=== PATIENT | male | born 1950 | race Caucasian/White ===

== ENCOUNTER 2021-01-13 11:53 | Outpatient (REF) | payer MEDICARE, SELFPAY ==
--- NOTE | ~2021-01-13 | XR_ITS ---
EXAMINATION: XR BOTH KNEES AP STANDING XR RIGHT KNEE, 2 VIEWS CLINICAL INFORMATION: Pain. COMPARISON: None. TECHNIQUE: Standing AP view of both knees and lateral and sunrise views of the right knee. FINDINGS: Right knee: Mild medial compartment joint space narrowing. Tricompartment marginal osteophytes. No osseous erosion. No fracture or dislocation. Trace joint effusion. Left knee: Mild medial compartment joint space narrowing with tiny marginal osteophytes. No osseous erosion. No abnormal soft tissue calcification. No fracture. XR/XR knee standing BI IMPRESSION: Right knee: Mild tricompartmental osteoarthritis. Trace joint effusion. Left knee: Mild medial compartment osteoarthritis.
--- NOTE | ~2021-01-13 | XR_ITS ---
EXAMINATION: XR BOTH KNEES AP STANDING XR RIGHT KNEE, 2 VIEWS CLINICAL INFORMATION: Pain. COMPARISON: None. TECHNIQUE: Standing AP view of both knees and lateral and sunrise views of the right knee. FINDINGS: Right knee: Mild medial compartment joint space narrowing. Tricompartment marginal osteophytes. No osseous erosion. No fracture or dislocation. Trace joint effusion. Left knee: Mild medial compartment joint space narrowing with tiny marginal osteophytes. No osseous erosion. No abnormal soft tissue calcification. No fracture. XR/XR knee RT 2V IMPRESSION: Right knee: Mild tricompartmental osteoarthritis. Trace joint effusion. Left knee: Mild medial compartment osteoarthritis.
== END 2021-01-13 11:54 | disposition home or self-care (01) ==
LOC: HO.HOSX 11:53
PROVIDERS: Visit Provider Orthopaedic Surgery
DX: M17.11 Unilateral primary osteoarthritis, right knee (principal); M76.892 Other specified enthesopathies of left lower limb, excluding foot
CPT/HCPCS: 73560; 73565; 99202

== ENCOUNTER 2021-01-22 12:57 | Outpatient (REF) | payer MEDICARE, BC, SELFPAY ==
--- NOTE | ~2021-01-22 | XR_ITS ---
EXAMINATION: BILATERAL WRIST X-RAY CLINICAL INFORMATION: Pain COMPARISON: None TECHNIQUE: 3 views of each wrist FINDINGS: Right: There is question of all old trauma to the distal ulna and mild madelung deformity. There is arthritis at the radiocarpal and distal radioulnar joints. There is arthritis at the first RESIDENTIAL joint and trapezoid trapezium scaphoid joints. There is soft tissue arterial calcification. There is soft tissue swelling about the wrist. Left: Bone alignment is normal. No fracture or dislocation is seen. There is severe arthritis at the first RESIDENTIAL joint. Joint spaces are otherwise normal. There is soft tissue arterial calcification. There is soft tissue swelling about the wrist. XR/XR wrist LT min 3V IMPRESSION: Right: Question old trauma to the distal ulna and madelung deformity. Arthritis at the radiocarpal and distal radial ulnar joint, first RESIDENTIAL and trapezoid trapezium scaphoid joints. Left: Severe arthritis at the first RESIDENTIAL joint.
--- NOTE | ~2021-01-22 | XR_ITS ---
EXAMINATION: BILATERAL WRIST X-RAY CLINICAL INFORMATION: Pain COMPARISON: None TECHNIQUE: 3 views of each wrist FINDINGS: Right: There is question of all old trauma to the distal ulna and mild madelung deformity. There is arthritis at the radiocarpal and distal radioulnar joints. There is arthritis at the first USP joint and trapezoid trapezium scaphoid joints. There is soft tissue arterial calcification. There is soft tissue swelling about the wrist. Left: Bone alignment is normal. No fracture or dislocation is seen. There is severe arthritis at the first USP joint. Joint spaces are otherwise normal. There is soft tissue arterial calcification. There is soft tissue swelling about the wrist. XR/XR wrist RT min 3V IMPRESSION: Right: Question old trauma to the distal ulna and madelung deformity. Arthritis at the radiocarpal and distal radial ulnar joint, first USP and trapezoid trapezium scaphoid joints. Left: Severe arthritis at the first USP joint.
== END 2021-01-22 12:58 | disposition home or self-care (01) ==
LOC: HO.HOSX 12:57
PROVIDERS: PCP Family Medicine; Visit Provider Orthopaedic Surgery
DX: R20.0 Anesthesia of skin (principal); R20.2 Paresthesia of skin; M72.0 Palmar fascial fibromatosis [Dupuytren]
CPT/HCPCS: 73110; 99202

== ENCOUNTER → 2021-02-20 09:07 | Outpatient (BNVA) | payer MEDICARE, BC, SELFPAY | PROVIDERS: PCP Hospitalist; Visit Provider Orthopaedic Surgery | DX: M17.11 Unilateral primary osteoarthritis, right knee (principal) | CPT/HCPCS: 20610; 99212; J1100 ==

== ENCOUNTER → 2021-06-26 10:12 | Outpatient (BNVA) | payer MEDICARE, BC, SELFPAY | PROVIDERS: PCP Hospitalist; Visit Provider Orthopaedic Surgery | DX: S83.242D Other tear of medial meniscus, current injury, left knee, subsequent encounter (principal) | CPT/HCPCS: 99212 ==

== ENCOUNTER → 2021-07-24 12:58 | Outpatient (BNVA) | payer MEDICARE, BC, SELFPAY | PROVIDERS: Visit Provider Physician Assistant | DX: M17.11 Unilateral primary osteoarthritis, right knee (principal) | CPT/HCPCS: 99212 ==

== ENCOUNTER 2021-07-30 11:46 | Day surgery (SDC) | payer MEDICARE, BC, SELFPAY ==
[2021-07-24 08:55] VITALS: BMI 26.4
--- NOTE | 2021-07-24 13:22 | P.CONAN_ITS ---
Documented by User: Janelle Reeder NP 07/29/21 08:36 HPI - Anesthesia Eval Consult details Narrative: 71yo M for Right Knee Arthroscopy Deep brain stim in situ (battery pack in chest) for cervical dystonia. Implanted 2019 at [facility]. No neuro f/u since, but working well per patient, no issues. Case reviewed with Dr Fields. PR[facility]ETO for DOS eval. [facility] Active Problems Active Problems: All Active Problems (Updated 07/24/21 @ 09:12 by Jo Ann Borges RN) Arthritis of right knee (Acute) Tendinitis of left hip flexor (Acute) Numbness and tingling in both hands (Acute) Dupuytren's contracture of left hand (Acute) Dupuytren's contracture of right hand (Acute) Tear of medial meniscus of right knee (Acute) Tear of medial meniscus of left knee (Acute) Past Medical History Medical History (Updated 07/24/21 @ 09:12 by Jo Ann Borges RN) Cervical dystonia Depression Elevated cholesterol Surgical History Surgical History (Updated 07/24/21 @ 09:23 by Jo Ann Borges RN) H/O brain surgery Hx of arthroscopic knee surgery Hx of colonoscopy Social History Social History Patient Tobacco Use Status: Former Tobacco user Quit Date: 45 yrs ago Use of substances other than those prescribed or required for medical reasons: No Are you DNR?: No Advance Directives: No Advance Directives Information Provided: No Advance Directives on File: No Current occupational status: retired Current occupation: rt handed Meds Allergies Allergy/AdvReac Type Severity Reaction Status Date / Time Penicillins Allergy Unknown Unknown Verified 02/20/21 09:11 Home Medications Medication Instructions Recorded Confirmed Last Taken Type atorvastatin 10 mg PO DAILY 01/13/21 07/24/21 Unknown History paroxetine HCl 20 mg PO DAILY 01/13/21 07/24/21 Unknown History Vitamin C PO DAILY 07/24/21 Unknown History turmeric PO DAILY 07/24/21 Unknown History vitamin E PO DAILY 07/24/21 Unknown History Exam Exam Date and Time: July 24, 2021 1322 Height,Weight and Vital Signs: Height 6 ft 1 in Weight 90.718 kg Assessment and Plan Assessment Anesthesia Assessment: Chart Reviewed Documented by User: Anthony Mo MD 07/30/21 18:08 PMF Past Medical History Medical History (Updated 07/24/21 @ 09:12 by Jo Ann Borges RN) Cervical dystonia Depression Elevated cholesterol Family History Family history of problems with anesthesia: No Surgical History Surgical History (Updated 07/24/21 @ 09:23 by Jo Ann Borges RN) H/O brain surgery Hx of arthroscopic knee surgery Hx of colonoscopy History of Problems with Anesthesia: No Social History Social History Patient Tobacco Use Status: Former Tobacco user Quit Date: 45 yrs ago Use of substances other than those prescribed or required for medical reasons: No Are you DNR?: No Advance Directives: No Advance Directives Information Provided: No Advance Directives on File: No Current occupational status: retired Current occupation: rt handed Meds Allergies Allergy/AdvReac Type Severity Reaction Status Date / Time Penicillins Allergy Unknown Unknown Verified 02/20/21 09:11 Home Medications Medication Instructions Recorded Confirmed Last Taken Type atorvastatin 10 mg PO DAILY 01/13/21 07/24/21 Unknown History paroxetine HCl 20 mg PO DAILY 01/13/21 07/24/21 Unknown History Vitamin C PO DAILY 07/24/21 Unknown History turmeric PO DAILY 07/24/21 Unknown History vitamin E PO DAILY 07/24/21 Unknown History Exam Airway Mallampati Class: III TM Dist: >3cm Neck ROM: Full Loose/Missing/Broken Teeth: Yes (Chipped ) Heart: S1, S2 Lungs: b/l breath sounds Assessment and Plan Assessment Anesthesia Assessment: Anesthesia Plan Discussed Final Anesthetic Review Family History of Problems with Anesthesia: No History of Problems with Anesthesia: No NPO: Yes ASA Class: III Final Preanesthetic Review: Meds/Allgs Chart Reviewed, Consent Obtained/Reviewed and Anes Risks/Benef Reviewed Patient Risk: Intermediate Procedure Risk: Intermediate Anesthetic Plan Anesthetic Plan: GA Disposition: Standard PACU
[2021-07-30 13:02] VITALS: BP 160/79; PULSE 48; RESP 16; TEMP 36.1; O2SAT 98
[2021-07-30] MEDS: Lactated Ringers 1,000 ML 100 ML IVCONT (13:16)
--- NOTE | 2021-07-30 13:18 | MHC.SHP ---
Pre-Procedural Eval Section A Date of Service: 07/30/21 The patient is an INPATIENT: No Changes since office visit: Yes Patient answered all questions; No Cold of Flu in the past 2 weeks, No New Medical Problems and No Changes in Medication The History & Physical has been completed within 30 days and I have reviewed it.: Yes Section B Chief Complaint: Unilateral primary osteoarthritis, right knee Allergies: Allergies Allergy/AdvReac Type Severity Reaction Status Date / Time Penicillins Allergy Unknown Unknown Verified 02/20/21 09:11 Plan I have reviewed the history and physical and performed a pertinent physical examination on my patient. No changes have occurred unless specified.
[2021-07-30 15:20] VITALS: BP 127/83; PULSE 52; RESP 14; TEMP 36.9; O2SAT 98
[2021-07-30 15:25] VITALS: BP 132/68; PULSE 55; RESP 14; O2SAT 100
[2021-07-30 15:30] VITALS: BP 147/99; PULSE 51; RESP 16; O2SAT 100
[2021-07-30 15:35] VITALS: BP 157/94; PULSE 63; RESP 16; TEMP 37; O2SAT 100
--- NOTE | 2021-08-08 15:51 | PM.OP ---
Brief Operative Note Date of Service: 07/30/21 Pre-op diagnosis: right knee medial meniscus tear Post-op diagnosis: same Procedure: Right knee with partial medial meniscectomy Surgeon: Fer Gonzalez MD Anesthesia: GETA Was an Fire Control System Installer used for this Procedure?: No Estimated blood loss (mL): 10 Tourniquet time (min): 25 IV fluids (mL): 500 Pathology: none sent Condition: stable Disposition: PACU
--- NOTE | 2021-08-08 15:52 | W.PM.OPN ---
Operative Note Operative Note Date of Service: 07/30/21 Narrative: Procedure in detail: Patient was brought to the operating room placed supine on the arthroscopic table and prepped and draped in standard sterile fashion. A time-out was called to identify proper site proper procedure proper surgeon and IV antibiotics per weight were administered. I began by exsanguinating the limb and insufflating tourniquet to 300 mm Hg. Then made a standard anterolateral stab incision. The knee was insufflated with water and 30 degree arthroscope was placed. There was grade 1 fibrillations of the patella but overall suprapatellar pouch was plane and the gutters were clean. I descended into the medial compartment where I made my medial portal under direct visualization. There was a complex tear of the body and posterior horn of the medial meniscus. Root was intact and there was grade 1 changes with some scattered grade 1 changes throughout the medial compartment. I used a combination of biter shaver and cautery to remove unstable portions of the meniscus. Approximately 20% meniscal volume was removed. Once I was satisfied with this the ACL was examined and found to be intact and the lateral compartment also was without the need for intervention. I then removed all instrumentation and closed the portals with skin glue. 25 mL of 2% Marcaine with epinephrine was injected into the joint and the surrounding soft tissues. Patient was then placed in sterile dressing extubated brought recovery room stable condition. There were no known complications.
== END 2021-07-30 16:15 | disposition home or self-care (01) ==
LOC: HO.SSS 11:47
PROVIDERS: PCP Hospitalist; Visit Provider Orthopaedic Surgery
PROC: (CPT 29870; principal; 2021-07-30 14:40)
DX: S83.241A Other tear of medial meniscus, current injury, right knee, initial encounter (principal); S83.231A Complex tear of medial meniscus, current injury, right knee, initial encounter; M17.11 Unilateral primary osteoarthritis, right knee; X58.XXXA Exposure to other specified factors, initial encounter; Y93.9 Activity, unspecified; Y92.9 Unspecified place or not applicable; Y99.8 Other external cause status; G24.3 Spasmodic torticollis; F32.9 Major depressive disorder, single episode, unspecified; E78.00 Pure hypercholesterolemia, unspecified; Z88.0 Allergy status to penicillin; Z87.891 Personal history of nicotine dependence; Z98.890 Other specified postprocedural states
CPT/HCPCS: 29881; J0171; J1100; J2405; J3010

== ENCOUNTER → 2021-08-04 08:48 | Outpatient (BNVA) | payer MEDICARE, BC, SELFPAY | PROVIDERS: Visit Provider Physician Assistant | DX: Z47.89 Encounter for other orthopedic aftercare (principal); Z98.890 Other specified postprocedural states | CPT/HCPCS: 99212 ==

== ENCOUNTER → 2021-11-27 11:16 | Outpatient (BNVA) | payer MEDICARE, BC, SELFPAY | PROVIDERS: Visit Provider Orthopaedic Surgery | DX: M17.11 Unilateral primary osteoarthritis, right knee (principal); Z98.890 Other specified postprocedural states | CPT/HCPCS: 99212 ==

== ENCOUNTER 2022-02-12 12:13 | Outpatient (REF) | payer MEDICARE, BC, SELFPAY ==
--- NOTE | ~2022-02-12 | XR_ITS ---
EXAMINATION: XR PELVIS CLINICAL INFORMATION: Hip pain COMPARISON: None TECHNIQUE: AP view of the pelvis. FINDINGS: There is normal symmetry of bilateral hip joints and SI joints. No visible fracture or dislocation. No bony erosive changes. The soft tissues are normal. XR/XR pelvis 1-2V IMPRESSION: Unremarkable AP pelvis exam.
== END 2022-02-12 12:14 | disposition home or self-care (01) ==
LOC: HO.HOSX 12:13
PROVIDERS: Visit Provider Orthopaedic Surgery
DX: M70.61 Trochanteric bursitis, right hip (principal); M17.0 Bilateral primary osteoarthritis of knee
CPT/HCPCS: 20610; 72170; 99212; J1100; J7318

== ENCOUNTER 2023-02-22 14:32 | Outpatient (AMB) | payer MEDICARE, BC, SELFPAY ==
--- NOTE | 2023-02-22 14:33 | A.OFFVIS_ITS ---
Intake Intake Visit Reasons: RT knee pain, last injection 02/12/22 Intake Note: Nick is a 73 year old male who presents today for a follow up of his right knee, last injection done . He reports that this injection was helpful but is unsure if he wants to proceed with new injection. He has some instability. Allergies Penicillins Allergy (Unknown, Verified 11/27/21 11:29) Unknown HPI RT knee pain, last injection 02/12/22 HPI Details Nick is a 73 year old man who returns with complaints of right knee pain & instability. He was last seen on 02/12/22 and received a Durolane injection to his right knee, and a steroid injection to his left knee. He complains of pain with daily activity, along with some instability. He says the Durolane injection was helpful for some time, but he is unsure if he wants to continue with injections or discuss other treatment options. PFSH Medical History Cervical dystonia Depression Elevated cholesterol Surgical History Hx of colonoscopy Hx of arthroscopic knee surgery H/O brain surgery Social History Patient Tobacco Use Status: Former Tobacco user Quit Date: 45 yrs ago Current occupational status: retired Current occupation: rt handed Review of Systems Const All systems reviewed & are unremarkable except as noted in HPI and below Physical Exam Const General: no acute distress, alert and awake Orientation/consciousness: patient oriented x3 HEENT Head: Yes normocephalic and Yes atraumatic Eyes EOM: EOMs intact bilaterally Resp Effort & Inspection: normal respiratory effort and able to speak in complete sentences Cardio Jugular venous distension: no JVD Skin General skin exam: turgor normal Rashes: no rashes Neuro General: patient oriented x3 Extrem Other: no effusion TTP medial compartment and medial retropatellar full rom no effusion Psych Appearance: grossly normal Affect: normal affect Attitude: cooperative Results Reviewed Results Reviewed: I personally reviewed relevant radiographs Right knee: Mild tricompartmental osteoarthritis. Trace joint effusion. ? Left knee: Mild medial compartment osteoarthritis. Assessment & Plan Assessment & Plan (1) Arthritis of right knee: Code(s): M17.11 - Unilateral primary osteoarthritis, right knee Plan: Moderate right knee OA. Has benefitted from viscosupplementation. I recommend additional IZQUIERDO as last injection > 1 yr ago. Will reach out to insurer. Plan Scribed for Fer Gonzalez MD by Freddy Jolly, medical assistant secretary, on 02/22/23 at 2:50 PM, EST. Coding Level of Care Code Est Pt Level 3 (98474) Diagnoses Arthritis of right knee M17.11
== END 2023-02-22 15:14 | disposition home or self-care (01) ==
PROVIDERS: Visit Provider Orthopaedic Surgery
DX: M17.11 Unilateral primary osteoarthritis, right knee (principal)
CPT/HCPCS: 99213

== ENCOUNTER → 2023-02-22 14:32 | Outpatient (BNVA) | payer MEDICARE, BC, SELFPAY | PROVIDERS: Visit Provider Orthopaedic Surgery | DX: M17.11 Unilateral primary osteoarthritis, right knee (principal) | CPT/HCPCS: 99212 ==

== ENCOUNTER 2023-03-05 11:36 | Outpatient (AMB) | payer MEDICARE, BC, SELFPAY ==
--- NOTE | 2023-03-05 11:42 | MHC.OFFVIS ---
Intake Intake Visit Reasons: Right Knee Durolane Allergies Penicillins Allergy (Unknown, Verified 11/27/21 11:29) Unknown HPI Right Knee Durolane HPI Details Here for right knee Durolane PFSH Medical History Cervical dystonia Depression Elevated cholesterol Surgical History Hx of colonoscopy Hx of arthroscopic knee surgery H/O brain surgery Social History Patient Tobacco Use Status: Former Tobacco user Quit Date: 45 yrs ago Current occupational status: retired Current occupation: rt handed Physical Exam Extrem Other: skin c/d/i no effusion Office Procedures Joint Injection/Drain Joint Injection/Drain Details: Injected Durolane. Site was prepped using aseptic technique. Patient tolerated the procedure well. Coding - Large joint Procedure code (CPT) selection complete Assessment & Plan Assessment & Plan (1) Arthritis of right knee: Code(s): M17.11 - Unilateral primary osteoarthritis, right knee Plan: Right knee Durolane injection. Coding Level of Care Code Est Pt Level 2 (04534) Diagnoses Arthritis of right knee M17.11 CPT Codes Coding - Large joint: 83728 - Large joint ([id number])
== END 2023-03-05 12:22 | disposition home or self-care (01) ==
PROVIDERS: Visit Provider Orthopaedic Surgery
DX: M17.11 Unilateral primary osteoarthritis, right knee (principal)
CPT/HCPCS: 20610

== ENCOUNTER → 2023-03-05 11:36 | Outpatient (BNVA) | payer MEDICARE, BC, SELFPAY | PROVIDERS: Visit Provider Orthopaedic Surgery | DX: M17.11 Unilateral primary osteoarthritis, right knee (principal) | CPT/HCPCS: 20610; J7318 ==

== ENCOUNTER 2023-10-07 08:45 | Outpatient (REF) | payer MEDICARE, BC, SELFPAY | END 2023-10-07 08:46 | disposition home or self-care (01) | LOC: HO.HOSX 08:45 | PROVIDERS: Visit Provider Orthopaedic Surgery | DX: Z13.89 Encounter for screening for other disorder (principal) ==

== ENCOUNTER 2024-10-12 11:01 | Outpatient (AMB) | payer MEDICARE, BC, SELFPAY ==
[2024-10-12 11:03] VITALS: BMI 26.4
--- NOTE | 2024-10-12 11:03 | A.OFFVIS_ITS ---
Vital Signs 10/12/24 11:03 Height 6 ft 1 in Weight 200 lb BMI 26.4 Intake Visit Reasons: OV-Rt knee OA Intake Note: Nick is a 74 year old male who presents today for follow up of his right knee osteoarthritis. He was last seen by Dr. Gonzalez on 03/05/23 where he was given a Durolane injection. He reports the injections gave him good relief however for the past 4-5 months his symptoms have reoccurred. Patient is interested on repeating gel injection. Denies any new injuries. Hx right knee arthroscopy 07/30/[address] Gonzalez. Allergies Penicillins Allergy (Unknown, Verified 10/12/24 11:06) Unknown HPI HPI OV-Rt knee OA: Details: Mr. Yang is a 74-year-old male who presents to the office today for evaluation of chronic right knee pain. He was last seen in the office with Dr. Gonzalez on 03/05/2023 for arthritis of his right knee. Patient has tried cortisone injections in the past with some relief. He did have a round of gel injections in the past that gave him great relief. This was performed at his last visit and gave him relief up until about 3-4 months ago. He is looking to repeat Durolane injections. PFSH Medical History Cervical dystonia Depression Elevated cholesterol Surgical History Hx of colonoscopy Hx of arthroscopic knee surgery H/O brain surgery Social History Patient Tobacco Use Status: Former Tobacco user Current occupational status: retired Current occupation: rt handed Review of Systems Const All systems reviewed & are unremarkable except as noted in HPI and below Physical Exam Vital Signs: BMI result Body Mass Index 26.4 Const General: cooperative, healthy appearing and no acute distress Resp Effort & Inspection: normal respiratory effort and able to speak in complete sentences Extrem Other: Right knee no effusion. Tenderness to palpation medial joint line. No tenderness to lateral joint line. Crepitus felt with range of motion. Full range of motion. NVI. Psych Appearance: grossly normal Mental Status: mental status grossly normal Attitude: cooperative Office Procedures AMB Joint Injection/Aspiration Joint Injection/Aspiration Primary Site: right knee Prep: site was prepped using aseptic technique, ethochloride spray was applied and injection warnings given Injected: 80 mg of, DepoMedrol, with 8 mL of (2% plain lidocaine) and in the joint Approach Used: anterolateral Procedure: The patient tolerated the procedure well, but had some pain with the injection and there was some relief with the local anesthesia Coding 82077 - Large joint Procedure code (CPT) selection complete Assessment & Plan Assessment & Plan (1) Arthritis of right knee: Code(s): M17.11 - Unilateral primary osteoarthritis, right knee Category: Medical Plan Mr. Yang is a 74-year-old male who presents to the office today for evaluation of chronic right knee pain. He was last seen in the office with Dr. Gonzalez on 03/05/2023 for arthritis of his right knee. Patient has tried cortisone injections in the past with some relief. He did have a round of gel injections in the past that gave him great relief. This was performed at his last visit and gave him relief up until about 3-4 months ago. He is looking to repeat Durolane injections. The patient was offered a cortisone injection in the right knee with 80 mg of D epoMedrol. The patient was explained the risks, benefits, and alternatives to receiving this injection. After receiving consent for the injection, the patient had the procedure done while in the office today. The patient tolerated the procedure well with no complications. While in the office today, we discussed petition the insurance company for another round of Durolane injections as the last injections worked very well for him. We will start this process for him in his soon as we obtain authorization we will call him to schedule appointments as appropriate. Follow-up will be pending gel approval, or sooner if needed X-rays of the right knee which were obtained while in the office today and were reviewed by me, Gisselle Head PA-C, revealed osteoarthritis. Orders: Orders XR knee RT 3V Today M25.569 - Pain in unspecified knee Coding Level of Care Code Est Pt Level 3 (36994) Diagnoses Arthritis of right knee M17.11 CPT Codes Coding - 03698 Large joint: 98252 - Large joint ([id number])
--- OUTSIDE RECORDS SUMMARY | 2024-10-12 11:50 | XMS_ITS | Clinical Summary ---
Author Organization [facility] Address [address] [place] [address] Care Team Providers Care Payroll Secretary Name Role Phone Unavailable Primary Care Provider Unavailabl e Social History Tobacco Use Types Packs/Day Years Used Date Smoking Tobacco: Never Assessed Sex and Gender Information Value Date Recorded Sex Assigned at Not on file Gender Identity Not on file Sexual Orientation Not on file Job Start Date Occupation Industry Not on file Not on file Not on file Plan of Treatment Health Maintenance Due Date Last Done Comments Hepatitis C Screening 1950 Depression Screening 1962 Preventative Health Evaluation 01/04/1968 DTap / Tdap / Td (1 - Tdap) 1969 Colon Cancer Screening (Colonoscopy) 1995 Fall Risk Assessment 2015 Pneumococcal Vaccine (1 of 1 - PCV) 2015 Shingrix-Zoster Vaccine (2 of 2) 03/10/2022 01/13/2022 COVID-19 Vaccine ( - season) 2023 12/08/2021, 12/10/2020, 10/04/2020, Additional history exists Influenza Vaccine (#1) 2024 04/15/2021, 2017 RSV Adult > 60+ Yrs or (1 - 1-dose 75+ series) 2025 Hepatitis B Vaccines Aged Out No long er eligible based on patient's age to complete this topic RSV Ped < 20 months Aged Out No longe r eligible based on patient's age to complete this topic
--- OUTSIDE RECORDS SUMMARY | 2024-10-12 11:51 | XMS_ITS | Patient Health Record ---
[facility] Address [address] [place] [address] Care Team Providers Care Central Office Operator Name Role Phone Vlad HOLLINGSWORTH, Morteza Primary Care Provider Unavailab Hilary Ryan Unavailable [phone] Mio Spear Unavailable [phone] Allergies Allergen (clinical drug ingredient) Drug/Non Drug Allergy documented on EMR Reaction Allergy Type Onset Date Status Penicillin Rash Drug Allergy Active Reason For Referral No Information Medications Medication SIG (Take, Route, Frequency, Duration) Notes Start Date End Date Status Statins Depletion THERAPY PACK as directed Orally Active Feldene 20 MG 1 capsule with food Orally Once a day; Duration: 30 day(s) 10/12/2022 Not-Taking Paxil 20 MG 1 tablet in the morn ing Orally Once a day Active Social History Tobacco Use: Social History Observation Description Date Details (start date - stop date) Never Smoker NA - NA Tobacco Use/Smoking Question Answer Notes Are you a: nonsmoker Alcohol Screen Question Answer Notes Did you have a drink containing alcohol in the p ast year? No Points 0 Interpretation Negative Tobacco use other than smoking: Question Answer Notes Are you an other tobacco user? No Problems Problem Type SNOMED Code ICD Code Onset Dates Problem Status W/U Status Risk Notes Problem Localized, primary osteoarthritis of the ankle and/or foot (583481814) Primary osteoarthrit is, left ankle and foot (M19.072) Active confirmed Problem Localized, primary osteoarthritis of the ankle and/or foot (456514262) Primary osteoarthrit is, right ankle and foot (M19.071) Active confirmed Vital Signs Height 6ft 1in in 12/30/2023 Weight 210 lbs 12/30/2023 BMI 27.7 kg/m2 12/30/2023 Encounters Encounter Location Date Provider Diagnosis [address] [place] [address] 10/21/2023 Hilary Sanchez Arthralgia of left ankle M25.572 and Osteoarthritis of left ankle or foot M19.072 [facility] [place] [address] 12/30/2023 Mio Spear Cellulitis of toe of left foot L03.032 ; Primary osteoarthritis, left ankle and foot M19.072 ; Primary osteoarthritis, right ankle and foot M19.071 ; Pain in left ankle and joints of left foot M25.572 and Pain in right ankle and joints of right foot M25.571 Assessments Encounter Date Diagnosis (ICD Code) Assessment Notes Treatment Notes Treatment Clinical Notes Section Notes 10/21/2023 Arthralgia of left ankle (ICD-10 - M25.572) 10/21/2023 Osteoarthritis of left ankle or foot (ICD-10 - M19.072) 12/30/2023 Primary osteoarthritis, left ankle and foot (ICD-10 - M19.072) 12/30/2023 Cellulitis of toe of left foot (ICD-10 - L03.032) 12/30/2023 Primary osteoarthritis, right ankle and foot (ICD-10 - M19.071) 12/30/2023 Pain in left ankle and joints of left foot (ICD-10 - M25.572) 12/30/2023 Pain in right ankle and joints of right foot (ICD-10 - M25.571) Plan Of Treatment Pending Test Test Name Order Date X ray : Ankle, left 3V 10/12/2022 X ray : Ankle, left 3V 10/21/2023 X ray : Ankle, left 3V 12/30/2023 X ray : Foot, left 3V 10/12/2022 X ray : Ankle, right 3V 12/30/2023 Insurance Providers Payer Name Payer Address Payer Phone Subscriber Number Group Number Insured Name Patient Relationship to Insured Coverage Start Date Coverage End Date Medicare [employer] [address] [place] [place] [address] [id number] Nick Burger Self - patient is the insured [facility] [address] [place] [address] [id number] Nick Burger Self - patient is the insured Medical (General) History Medical History History ICD Code Depression Hypercholesterolemia
--- OUTSIDE RECORDS SUMMARY | 2024-10-12 11:51 | XMS_ITS | Encounter Summary ---
Author Organization [facility] Address [address] [place] [address] Care Team Providers Care Jacquard Loom Card Changer Name Role Phone Morteza Chu MD Primary Care Provider [phone] Encounter Details Date Type Department Care Team (Late Contact Info) Description 02/22/2024 Lab Requisition [facility] Lab [address] [facility] [place] [phone] Ward Rosales MD [address] [address] Elevated prostate specific antigen (PSA) Social History Tobacco Use Types Packs/Day Years Used Date Smoking Tobacco: Never Smokeless Tobacco: Never Alcohol Use Standard Drinks/Week Comments Not Currently 0 (1 standard drink = 0.6 oz pur e alcohol) Sex and Gender Information Value Date Recorded Sex Assigned at Male 05/29/2024 8:37 AM EDT Legal Sex Male 6:03 AM EST Gender Identity Male 05/29/2024 8:37 AM EDT Sexual Orientation Straight 05/30/2024 7: 09 AM EDT documented as of this encounter Plan of Treatment Upcoming Encounters Date Type Department Care Team (Late st Contact Info) Description 01/18/2025 12:30 PM EST Ancillary Procedure [facility] [address] [facility] [address] [place] [address] documented as of this encounter Procedures Procedure Name Priority Date/Time Associated Diagnosis Comments PROSTATE SPECIFIC ANTIGEN DIAGNOSTIC Routine 02/22/2024 11:10 AM EST Elevated prostate specific antigen (PSA) documented in this encounter Results * (ABNORMAL) Prostate specific antigen diagnostic (02/22/2024 11:10 AM EST) PSA 36.22(H) 0.00 - 4.00 ng/mL LAB CHEMISTRY METHOD 02/22/2024 8:15 PM EST [facility] Blood Venous blood specimen / Unknown 02/22/2024 11:10 AM EST 02/22/2024 6:46 PM EST Narrative [facility] - 02/22/2024 8:15 PM EST The Siemens Advia Haoqiao.cnaur Chemiluminescent Immunoassay is used. Results obtained with different assay methods or kits cannot be used interchangeably. Results cannot be interpreted as absolute evidence of the presence or absence of malignant disease. us Ward Rosales MD LAB BLOOD ORDERABLES Final Resu lt [facility] [address] [place] [address], documented in this encounter Visit Diagnoses Diagnosis Elevated prostate specific antigen (PSA) documented in this encounter Care Teams Jacquard Loom Card Changer Relationship Specialty Start Date End Date Morteza Chu MD [address] [place] [address] PCP - General Internal Medicine 01/26/24 documented as of this encounter
--- OUTSIDE RECORDS SUMMARY | 2024-10-12 11:51 | XMS_ITS ---
Author Name [facility] Organization Unknown Care Team Organization Name Specialty Phone Email Start Date End Da berenice [facility] Daniel Cobos Primary Care 11/19/2022 024
== END 2024-10-12 11:36 | disposition home or self-care (01) ==
LOC: HO.HOS 11:01
PROVIDERS: Visit Provider Physician Assistant
DX: M17.11 Unilateral primary osteoarthritis, right knee (principal)
CPT/HCPCS: 20610; 99213

== ENCOUNTER 2024-10-12 11:01 | Outpatient (REF) | payer MEDICARE, BC, SELFPAY ==
--- NOTE | ~2024-10-12 | XR_ITS ---
EXAMINATION: XR KNEE, RIGHT CLINICAL INFORMATION: M25.569 - Pain in unspecified knee COMPARISON: None available. TECHNIQUE: AP bilateral standing, lateral, and sunrise view of the right knee. FINDINGS: There is mild narrowing of the medial compartment a small narrowing of the lateral compartment. There is mild medial subluxation of distal femur in the joint. There are tricompartmental marginal osteophytes. No joint effusion is evident. There is likely short focal area of chondrocalcinosis involving the lateral margin of the lateral facet of patella on the sunrise view. XR/XR knee RT 3V IMPRESSION: Mild osteoarthritis and minimal chondrocalcinosis. Electronically signed by: Alejandro Corral MD 10/12/2024 11:48 AM EDT
--- OUTSIDE RECORDS SUMMARY | 2024-10-12 12:19 | XMS_ITS | Encounter Summary ---
Author Organization [facility] Address [address] [place] [address] [place] [address] Phone Care Team Providers Care Performance Test Engineer Name Role Phone Lorena Sal MD Primary Care Provider Unavailabl Daniel Candelaria MD Primary Care Provider Morteza Chu MD Primary Care Provider + Self-Referred, Patient Unavailable Unavailab Josee Sherman MD Unavailable Santo Fernandez MD Unavailable [phone] Art Alvarado [facility] Unavailable [phone] Encounter Details Date Type Department Care Team (Late st Contact Info) Description 12/23/2017 Procedure Pass [facility] [address] [place] [phone] Social History Tobacco Use Types Packs/Day Years Used Date Smoking Tobacco: Former Cigarettes Q uit: 1975 Smokeless Tobacco: Never Alcohol Use Standard Drinks/Week Comments No 0 (1 standard drink = 0.6 oz pur e alcohol) quit 42 years ago Sex and Gender Information Value Date Recorded Sex Assigned at Male 03/28/2024 12:49 PM EST Legal Sex Male 10:02 PM EDT Gender Identity Male 03/28/2024 12:49 PM EST Sexual Orientation Straight 03/28/2024 12 :49 PM EST documented as of this encounter Plan of Treatment Not on file documented as of this encounter Visit Diagnoses Not on filedocumented in this encounter Additional Health Concerns Infection Onset Date Last Indicated Resolved Time CoV-Risk 03/11/2021 03/11/2021 03/21/2021 1:23 AM EST documented as of this encounter Care Teams Performance Test Engineer Relationship Specialty Start Date End Date Lorena Sal MD PCP - General Emergency Medicine 12/08/17 03/10/21 Daniel Cobos MD [address] [place] [address] PCP - General Internal Medicine 03/11/21 03/27/24 Morteza Chu MD [address] [place] [address] PCP - General Internal Medicine 03/28/24 Self-Referred, Patient 03/28/24 Josee Wall MD [address] [place] [phone] [email or web address] Radiation Oncology 03/29/24 Santo Fernandez MD [address] [place] [address] [email or web address] Urology 03/29/24 [facility] [address] [place] [phone] [email or web address] Medical Oncology 03/29/24 documented as of this encounter Additional Source Comments The information contained in this document represents components of the legal health record. It is not the complete legal health record.[facility]
== END 2024-10-12 11:02 | disposition home or self-care (01) ==
LOC: HO.HOSX 11:01
PROVIDERS: Visit Provider Physician Assistant
DX: M17.11 Unilateral primary osteoarthritis, right knee (principal); M25.561 Pain in right knee; G89.29 Other chronic pain; Z98.890 Other specified postprocedural states
CPT/HCPCS: 20610; 73562; 99212; J1010; J2003

== ENCOUNTER → 2024-10-12 11:36 | Outpatient (BNV) | payer MEDICARE, BC, SELFPAY | PROVIDERS: Visit Provider Radiology Diagnostic Radiology | DX: M17.11 Unilateral primary osteoarthritis, right knee (principal) | CPT/HCPCS: 73562 ==

== ENCOUNTER 2024-12-08 09:57 | Outpatient (AMB) | payer MEDICARE, BC, SELFPAY ==
--- NOTE | 2024-12-08 10:11 | MHC.OFFVIS ---
Vital Signs 12/08/24 10:17 Height 6 ft 1 in Weight 200 lb BMI 26.4 Intake Visit Reasons: Inj-RT knee Durolane Intake Note: Nick is a 74 year old male who presents today for a right knee durolane gel injection. Allergies Penicillins Allergy (Unknown, Verified 12/08/24 10:16) Unknown HPI HPI Inj-RT knee Durolane: Details: Mr. Yang is a 74 yo male who presents to the office today for a Durolane injection in he right knee. PFSH Medical History Cervical dystonia Depression Elevated cholesterol Surgical History Hx of colonoscopy Hx of arthroscopic knee surgery H/O brain surgery Social History Patient Tobacco Use Status: Former Tobacco user Current occupational status: retired Current occupation: rt handed Review of Systems Const All systems reviewed & are unremarkable except as noted in HPI and below Physical Exam Const General: cooperative, healthy appearing and no acute distress Resp Effort & Inspection: normal respiratory effort and able to speak in complete sentences Extrem Other: Right knee no effusion. Tenderness to palpation medial joint line. No tenderness to lateral joint line. Crepitus felt with range of motion. Full range of motion. NVI. Psych Appearance: grossly normal Mental Status: mental status grossly normal Attitude: cooperative Office Procedures AMB Joint Injection/Aspiration Joint Injection/Aspiration Primary Site: right knee Prep: site was prepped using aseptic technique, ethochloride spray was applied and injection warnings given Injected: in the joint and other (Durolane) Approach Used: anterolateral Procedure: The patient tolerated the procedure well, but had some pain with the injection and there was some relief with the local anesthesia Coding 53409 - Large joint Procedure code (CPT) selection complete Assessment & Plan Assessment & Plan (1) Arthritis of right knee: Code(s): M17.11 - Unilateral primary osteoarthritis, right knee Category: Medical Plan The patient was offered a Durolane injection in the right knee. The patient was explained the risks, benefits, and alternatives to receiving this injection. After receiving consent for the injection, the patient had the procedure done while in the office today. The patient tolerated the procedure well with no complications. Follow-up will be prn, or sooner if needed Coding Level of Care Code Procedure Only Diagnoses Arthritis of right knee M17.11 CPT Codes Coding - 48446 Large joint: 77403 - Large joint ([id number])
[2024-12-08 10:17] VITALS: BMI 26.4
--- OUTSIDE RECORDS SUMMARY | 2024-12-08 11:08 | XMS_ITS | Clinical Summary ---
Author Organization [facility] Address [address] [place] [address] Care Team Providers Care Alcoholism Worker Name Role Phone Unavailable Primary Care Provider [...] 2) 03/10/2022 01/13/2022 COVID-19 Vaccine ( - 2024- season) 2024 12/08/2021, 12/10/2020, 10/04/2020, Additional history exists Influenza [...]
--- OUTSIDE RECORDS SUMMARY | 2024-12-08 11:09 | XMS_ITS | Encounter Summary ---
Author Organization [facility] Address [address] [place] [address] [place] [address] Phone Care Team Providers Care Supply Controller Name Role Phone Lorena Sal MD Primary Care Provider Unavailabl Daniel Candelaria MD Primary Care Provider Morteza Chu MD Primary Care Provider + Self-Referred, Patient Unavailable Unavailab Josee Sherman MD Unavailable Santo Fernandez MD Unavailable [phone] [facility] Unavailable [phone] Encounter Details Date Type Department Care Team (Late st Contact Info) Description 12/23/2017 Procedure Pass [facility] DEPT [address] [place] [phone] Social History Tobacco Use Types Packs/Day Years [...] documented as of this encounter Care Teams Supply Controller Relationship Specialty Start Date End Date Lorena Sal MD PCP - General Emergency Medicine 12/08/17 03/10/21 Daniel Cobos MD [address] [facility] [address] [place] [address] PCP - General Internal Medicine 03/11/21 03/27/24 Morteza Chu MD [address] [place] [address] PCP - General Internal Medicine 03/28/24 Self-Referred, Patient 03/28/24 Josee Wall MD [address] [place] [address] [email or web address] Radiation Oncology 03/29/24 Santo Fernandez MD [address] [place] [phone] [email or web address] Urology 03/29/24 [facility] [address] [place] [phone] [email or web address] Medical Oncology 03/29/24 documented as of this encounter Additional Source Comments The information contained in this document represents components of the legal health record. It is not the complete legal health record.[facility]
--- OUTSIDE RECORDS SUMMARY | 2024-12-08 11:09 | XMS_ITS | Encounter Summary ---
Author Organization [facility] Address [address] [place] [address] [place] [address] Phone Care Team Providers Care Senior Cyber Security Analyst Name Role Phone Lorena Sal MD Primary Care Provider Unavailabl Daniel Candelaria MD Primary Care Provider Morteza Chu MD Primary Care Provider + Self-Referred, Patient Unavailable Unavailab Josee Sherman MD Unavailable Santo Fernandez MD Unavailable [phone] Art Alvarado [facility] Unavailable [phone] Encounter Details Date Type Department Care Team (Late st Contact Info) Description 12/17/2017 Procedure Pass [facility] PERIOPER[facility]IVE DEPT [address] [place] [phone] Social History Tobacco Use Types Packs/Day Years [...] documented as of this encounter Care Teams Senior Cyber Security Analyst Relationship Specialty Start Date End Date Lorena Sal MD PCP - General Emergency Medicine 12/08/17 03/10/21 Daniel Cobos MD [address] [facility] [address] [place] [address] PCP - General Internal Medicine 03/11/21 03/27/24 Morteza Chu MD [address] [place] [address] PCP - General Internal Medicine 03/28/24 Self-Referred, Patient 03/28/24 Josee Wall MD [address] [place] [address] [email or web address] Radiation Oncology 03/29/24 Santo Fernandez MD [address] [place] [address] [email or web address] Urology 03/29/24 [facility] [address] [place] [phone] [email or web address] Medical Oncology 03/29/24 documented as of this encounter Additional Source Comments The information contained in this document represents components of the legal health record. It is not the complete legal health record.[facility]
--- OUTSIDE RECORDS SUMMARY | 2024-12-08 11:09 | XMS_ITS ---
Author Organization [facility] Address [address] [place] [address] Phone Care Team Providers Care Operational Meteorologist Name Role Phone Morteza Chu MD Primary Care Provider [phone] Active Problems Problem Noted Date Diagnosed Date Prostate cancer (CMS/HCC V24, CMS/HCC V28) 05/10 Primary osteoarthritis, left ankle and foot 04/16 Primary osteoarthritis, right ankle and foot Primary hypertension 02/01/2023 Assessment & Plan (03/29/2024 9:24 AM EST): Patient reports that he was just recently diagnosed with prostate cancer and is going to be undergoing a PET scan immediately after this appointment. In light of that, I am not going to titrate his losartan up at this time. Can have patient take blood pressures at home and report back to the office if they remain outside of normal limits consistently. Erectile dysfunction 11/18/2022 Dilated aortic root (CMS/HCC V24) 10/05/2022 Overview (12/16/2023): - Echocardiogram at the time of his TIA in September 2019 showed normal left ventricular size, wall thickness, and systolic function, normal regional wall motion with an ejection fraction of 50 to 60%, mildly dilated right ventricle with normal systolic function, no hemodynamically significant valve disease, mildly dilated aortic root at 4.1 cm Last Assessment & Plan: The patient inquired about his aorta. He had no significant gradient across the aortic valve on pullback. He has an echo that was scheduled in follow-up to his elevated calcium score however he was told he did not need to have it but given his questions regarding his aortic valve I am going to go ahead and have him keep it because it was never canceled. It is certainly prudent to remeasure his aortic root and ascending aorta. When he had the CTA there were no measurements included. He will continue on a statin and being sure that blood pressure is ideally controlled. Assessment & Plan (03/29/2024 9:24 AM EST): Stable on most recent echocardiogram from 01/26/2024. Can repeat surveillance echocardiogram in 1 year. Orders: ECG 12 lead Cervical dystonia 06/11/2022 Hyperlipidemia 06/11/2022 Overview (12/16/2023): Last Assessment & Plan: The patient was increased to maximum statin therapy when the results of his severely elevated calcium score on CTA returned. Fortunately he is having no myalgia. He does have a brother who had premature coronary disease myocardial infarction and bypass surgery. Because of this he asked what he can do to prevent this. I have suggested that he remain on maximum statin therapy for the maximum risk reduction in the future. If by any chance he has symptoms of myalgia that is interfering with his quality of life, we certainly can reduce this in half or switch him to rosuvastatin. I was very pleased and let him know that with an LDL of 44 and triglycerides of 85 he is in a very good range of well treated lipids. Assessment & Plan (03/29/2024 9:24 AM EST): LDL is well-controlled. Patient should continue on current regimen. Dystonia 12/17/2017 Anxiety disorder 11/01/2017 Current Oncology Plans No current plan information found. Past Plans No past plan information found. Radiation Treatments * Treatment Site Started On Last Treated On Elapsed Days Fractions Complete Last Fraction Dose Given/Prescribed Total Dose Given/Prescribed Technique PelvisSVPr ostate 06/21/2024 5 37 28 of 28 250 cGy / 250 cGy 7,000 cGy / 7, 000 cGy 3 ARC VMAT
--- OUTSIDE RECORDS SUMMARY | 2024-12-08 11:09 | XMS_ITS | Encounter Summary ---
Author Organization [facility] Address [facility] [address] [place] [address] Phone Care Team Providers Care Ripper Operator Name Role Phone Lorena Sal MD Primary Care Provider Unavailabl Daniel Candelaria MD Primary Care Provider Morteza Chu MD Primary Care Provider + Self-Referred, Patient Unavailable Unavailab Josee Sherman MD Unavailable Santo Fernandez MD Unavailable [phone] Art Alvarado [facility] Unavailable [phone] Encounter Details Date Type Department Care Team (Late st Contact Info) Description 12/17/2017 Procedure Pass [facility], [place] [address] [facility], 4th [place] [address] Social History Tobacco Use Types Packs/Day Years [...] documented as of this encounter Care Teams Ripper Operator Relationship Specialty Start Date End Date Lorena Sal MD PCP - General Emergency Medicine 12/08/17 03/10/21 Daniel Cobos MD [address] [facility] [address] [place] [address] PCP - General Internal Medicine 03/11/21 03/27/24 Morteza Chu MD [address] [place] [address] PCP - General Internal Medicine 03/28/24 Self-Referred, Patient 03/28/24 Josee Wall MD [address] [place] [phone] [email or web address] Radiation Oncology 03/29/24 Santo Fernandez MD [address] [place] [phone] [email or web address] Urology 03/29/24 Art Alvarado [facility] [address] [place] [phone] [email or web address] Medical Oncology 03/29/24 documented as of this encounter Additional Source Comments The information contained in this document represents components of the legal health record. It is not the complete legal health record.[facility]
--- OUTSIDE RECORDS SUMMARY | 2024-12-08 11:09 | XMS_ITS | Clinical Summary ---
Author Organization [address] [place] [address] Address [address] [place] [address] Phone Care Team Providers Care Major Case Detective Name Role Phone Morteza Chu MD Primary Care Provider [phone] Allergies Active Allergy Reactions Criticality Noted Date Comments Penicillins Rash 06/11/2022 Medications multivitamin with minerals tablet Take 1 tablet by mouth 1 (one) time each day. Active atorvastatin (LIPITOR) 40 mg tablet Take 1 tablet (40 mg total) by mouth 1 (one) time each day. 90 each 2 04/18/19 25 Active calcium carbonate (Calcium 600) 1,500 mg (600 mg elemental calcium) tablet Take 1 tablet (1,500 mg total) by mouth. Active ascorbic acid (VITAMIN C) 1,000 mg tablet Take 1 tablet (1,000 mg total) by mouth 1 (one) time each day. Active omega 2-hmh-rzz-fish oil (Fish OiL) 1,200 (144-216) mg capsule Take by mouth. Active cholecalcifero l (Vitamin D3) 50 mcg (2,000 unit) tablet Take 1 tablet (2,000 Units total) by mouth 1 (one) time each day. Active cyanocobalamin (Vitamin B-12) 50 mcg tablet Take 1 tablet (50 mcg total) by mouth 1 (one) time each day. Active zinc gluconate 50 mg tablet Take 1 tablet (50 mg total) by mouth 1 (one) time each day. Active MAGNESIUM GLYCINATE ORAL Take by mouth. Active PARoxetine (PAXIL) 20 mg tablet TAKE 1 TABLET BY MOUTH EVERY MORNING 90 tablet 1 09/27/19 25 Active losartan (COZAAR) 25 mg tablet TAKE 1 TABLET BY MOUTH DAILY 90 tablet 1 10/07/19 25 Active tamsulosin (FLOMAX) 0.4 mg 24 hr capsule TAKE 1 CAPSULE BY MOUTH AT BEDTIME, CAPSULE SHOULD BE TAKEN 30 MINUTES FOLLOWING THE SAME MEAL EACH DAY 30 capsule 11/24/19 25 Active tamsulosin (FLOMAX) 0.4 mg 24 hr capsule Take 1 capsule (0.4 mg total) by mouth at bedtime. Capsules should be taken 30 minutes following the same meal each day. 30 each 1 07/29/19 25 025 Discontinued Active Problems Problem Noted Date Diagnosed Date Prostate cancer ([facility] V24, [facility] V28) 05/10 Primary osteoarthritis, left ankle and [...] consistently. Erectile dysfunction 11/18/2022 Dilated aortic root ([facility] V24) 10/05/2022 Overview (12/16/2023): - Echocardiogram at [...] current regimen. Dystonia 12/17/2017 Anxiety disorder 11/01/2017 Encounters Date Type Department Care Team Description 11/29/2024 Telephone [facility] Hematology Oncology [address] [place] [address] Keyanna Otto MD 10/06/2024 Telephone [facility] [address] [facility] [address] [place] [address] Pina Miller MD 09/07/2024 9:30 AM EDT Office Visit [facility] [address] [place] [id number] Morteza Chu MD Prostate cancer ([facility] V24, [facility] V28) (Primary Dx); Pure hypercholesterolemia; Primary hypertension 09/07/2024 Telephone [facility] Hematology Oncology [address] [place] [address] Keyanna Otto MD from Last 3 Months Immunizations Name Administration Dates Next Due Influenza trivalent, 0.5mL ( Fluzone High-dose) 65yo and older 11/18/2022,04/15/2021 Influenza, Unspecified 01/13/2022 Moderna SARS-CoV-2 COVID-19, mRNA, LNP-S, preservative free 06/13/2021 Pfizer SARS-CoV-2 COVID-19, mRNA, LNP-S, preservative free 12/08/2021,12/10/2020,10/04/2020,2020,05/14/2020 Td Tetanus diptheria (Tdvax) 7yo and older 06/23/2022 Tdap Tetanus diptheria acell ular pertussis (Boostrix; Adacel) 7yo and older 06/23/2022 Zoster recombinant (Shingrix ) 19yo and older 01/13/2022 Surgical History Surgery Date Site/Laterality Comments OTHER SURGICAL HISTORY N/A PROCEDURE: HISTORY OTHER; COMMENT: deep brain stimulation for cervical dystonia Medical History Medical History Date Comments 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 DX:History of CVA (cerebrova scular accident); COMMENT: Had plaque broken off during angiogram -2011 Cervical dystonia DX:Cervical dy stonia Mixed hyperlipidemia DX:Mixed hy perlipidemia Stroke ([facility] V24, [facility] V28) Family History Medical History Relation Name Comments CABG Brother quadruple Coronary artery disease Brother Heart attack Brother in his 40s No Known Problems Daughter x2 Coronary artery disease Father hear t valve problems Heart attack Father at 80 in h is sleep Alcohol/Drug Mother Other: lupus Mother No Known Problems Son Cancer Neg Hx Relation Name Status Comments Brother Alive Daughter x2 Alive Father Mother Son Alive Social History Tobacco Use Types Packs/Day Years Used Date Smoking Tobacco: Former Cigarettes Smokeless Tobacco: Never Tobacco Cessation:Counseling Given: Not Answered Alcohol Use Standard Drinks/Week Comments Not Currently 0 (1 standard drink = 0.6 oz pur e alcohol) Sex and Gender Information Value Date Recorded Sex Assigned at Male 05/29/2024 8:37 AM EDT Legal Sex Male 6:03 AM EST Gender Identity Male 05/29/2024 8:37 AM EDT Sexual Orientation Straight 05/30/2024 7: 09 AM EDT Occupation Industry Job Start Date Job End Date Retired Not on file Not on file Not on file Obstetrics History Last Filed Vital Signs Vital Sign Reading Time Taken Comments Blood Pressure 130/74 09/07/2024 9:14 AM EDT Pulse 66 09/07/2024 9:14 AM EDT Temperature 36.1 C (96.9 F) 08/25/2024 1:43 PM EDT Respiratory Rate 18 08/25/2024 1:43 PM EDT Oxygen Saturation 98% 08/25/2024 1:43 PM EDT Inhaled Oxygen Concentration - - Weight 99.3 kg (219 lb) 08/25/2024 1:43 PM EDT Height 182.9 cm (6') 09/07/2024 9:14 AM EDT Body Mass Index 29.7 08/25/2024 1:43 PM EDT Plan of Treatment Upcoming Encounters Date Type Department Care Team (Late st Contact Info) Description 01/18/2025 12:30 PM EST Ancillary Procedure [facility] [address] [facility] [address] [place] [address] Health Maintenance Due Date Last Done Comments Abdominal Aortic Aneurysm (AAA) Screen 02/15/2022 Hepatitis C Screening 02/15/2022 Social Influencers of Health Screening 02/15/2022 Depression Screening 03/15/2024 07/12/2023 Medicare Annual Wellness Visit 07/11/2024 07/12/2023 COVID-19 Vaccine (10 - Pfizer risk season) 2024 12/13/2023, 12/19/2022, 08/17/2022, Additional history exists Influenza Vaccine (#1) 2024 , 11/18/2022, 01/15/2022, Additional history exists Falls Risk Assessment 05/10/2025 05/10/2024 Hypertension/CHF/CAD Annual BMP Blood Test 09/07/2025 09/07/2024, 12/14/2023, 12/14/2023 Colorectal Cancer Screening: Colonoscopy 04/03/2027 04/03/2022 Cholesterol Screening (Lipid Panel) 09/07/2029 09/07/2024, 12/14/2023, 12/14/2023 DTaP,Tdap,and Td Vaccines (3 - Td or Tdap) 06/23/2032 06/23/2022, 06/23/2022 Pneumococcal Vaccine: 50+ Years Completed 05/21/2021, 12/22/2018 Zoster Vaccines Completed 07/22/2022, 11/0 03/2021, 05/21/2021, Additional history exists RSV Immunization Adult Patients Completed 12/19/2022 HIB Vaccines Aged Out No longer eligi ble based on patient's age to complete this topic HPV Vaccines Aged Out No longer eligi ble based on patient's age to complete this topic Hepatitis A Vaccines Aged Out No long er eligible based on patient's age to complete this topic Hepatitis B Vaccines Aged Out No long er eligible based on patient's age to complete this topic IPV Vaccines Aged Out No longer eligi ble based on patient's age to complete this topic MMR Vaccines Aged Out No longer eligi ble based on patient's age to complete this topic Meningococcal ACWY Vaccine Aged Out N o longer eligible based on patient's age to complete this topic Meningococcal B Vaccine Aged Out No l onger eligible based on patient's age to complete this topic RSV Immunization Patients Under 20 months Aged Out No longer eligible based on patient's age to complete this topic Varicella Vaccines Aged Out No longer eligible based on patient's age to complete this topic Procedures Procedure Name Priority Date/Time Associated Diagnosis Comments PROSTATE SPECIFIC ANTIGEN SCREEN Routine 11/17/2024 11:17 AM EDT Malignant neoplasm of prostate ([facility] V24, [facility] V28) PROSTATE SPECIFIC ANTIGEN SCREEN Routine 09/07/2024 9:42 AM EDT Special screening, prostate cancer Elevated PSA ALANINE AMINOTRANSFERASE Routine 09/07/2024 9:40 AM EDT Pure hypercholesterolemia ASPARTATE AMINOTRANSFERASE Routine 09/07/2024 9:40 AM EDT Pure hypercholesterolemia BASIC METABOLIC PANEL Routine 09/07/2024 9:40 AM EDT Pure hypercholesterolemia LIPID PANEL WITH REFLEX TO DIRECT LDL Routine 09/07/2024 9:40 AM EDT Pure hypercholesterolemia DEPRESSION SCREENING Routine 07/12/2023 COLONOSCOPY Routine 04/03/2022 from Last 3 Months or Most Recently Relevant to Health Maintenance Results * Prostate specific antigen screen (11/17/2024 11:17 AM EDT) Only the most recent of2 resultswithin the time period is included. PSA 0.21 0.00 - 4.00 ng/mL LAB CHEMISTRY METHOD 11/17/2024 2:07 PM EDT [facility] Blood Venous blood specimen / Unknown Venipuncture / Unknown 11/17/2024 11:17 AM EDT 11/17/2024 11:17 AM EDT Narrative [facility] - 11/17/2024 2:07 PM EDT The Siemens Advia Centaur Chemiluminescent Immunoassay is used. Results obtained with different assay methods or kits cannot be used interchangeably. Results cannot be interpreted as absolute evidence of the presence or absence of malignant disease. us Cristhian Kiran MD LAB BLOOD ORDERABLES Final Resul t [facility] [address] [place] [address], [place] [phone] * Lipid panel with reflex to direct LDL (09/07/2024 9:40 AM EDT) Cholesterol 123 0 - 200 mg/dL LAB CHEMISTRY METHOD 09/07/2024 12:41 PM EDT [facility] Triglycerides 117 0 - 150 mg/dL LAB CHEMISTRY METHOD 09/07/2024 12:41 PM EDT [facility] HDL 46 >=40 mg/dL LAB CHEMISTRY METHOD 09/07/2024 12:41 PM EDT [facility] LDL Calculated 54 0 - 100 mg/dL LAB CHEMISTRY METHOD 09/07/2024 12:41 PM EDT [facility] VLDL Cholesterol Gulshan 23.4 mg/dL LAB CHEMISTRY METHOD 09/07/2024 12:41 PM EDT [facility] Non HDL Chol. (LDL+VLDL) 77 <145 mg/dL LAB CHEMISTRY METHOD 09/07/2024 12:41 PM EDT [facility] Chol/HDL Ratio 2.7 0.0 - 4.4 LAB CHEMISTRY METHOD 09/07/2024 12:41 PM EDT [facility] Blood Venous blood specimen / Unknown Venipuncture / Unknown 09/07/2024 9:40 AM EDT 09/07/2024 9:40 AM EDT us Morteza Chu MD LAB BLOOD ORDERABLES Final Res ult Performing Organization Address City/[facility]/ZIP Co de Phone Number [facility] [address] [place] [address], [place] [phone] * Alanine aminotransferase (09/07/2024 9:40 AM EDT) ALT (SGPT) 31 10 - 60 unit/L LAB CHEMISTRY METHOD 09/07/2024 12:39 PM EDT [facility] Blood Venous blood specimen / Unknown Venipuncture / Unknown 09/07/2024 9:40 AM EDT 09/07/2024 9:40 AM EDT us Morteza Chu MD LAB BLOOD ORDERABLES Final Res ult [facility] [address] [place] [address], [place] [phone] * Aspartate aminotransferase (09/07/2024 9:40 AM EDT) Pathologist [facility] AST (SGOT) 24 10 - 42 unit/L LAB CHEMISTRY METHOD 09/07/2024 12:39 PM [facility] Blood Venous blood specimen / Unknown Venipuncture / Unknown 09/07/2024 9:40 AM EDT 09/07/2024 9:40 AM EDT us Morteza Chu MD LAB BLOOD ORDERABLES Final Res ult [facility] [address] [place] [address], [place] [phone] * Basic metabolic panel (09/07/2024 9:40 AM EDT) [facility] Sodium 141 133 - 145 mmol/L LAB CHEMISTRY METHOD 09/07/2024 12:39 PM [facility] Potassium 4.7 3.5 - 5.5 mmol/L LAB CHEMISTRY METHOD 09/07/2024 12:39 PM [facility] Chloride 108 96 - 110 mmol/L LAB CHEMISTRY METHOD 09/07/2024 12:39 PM [facility] CO2 29 21 - 32 mmol/L LAB CHEMISTRY METHOD 09/07/2024 12:39 PM [facility] Anion Gap 4 3 - 11 LAB CHEMISTRY METHOD 09/07/2024 12:39 PM [facility] Glucose 76 70 - 100 mg/dL LAB CHEMISTRY METHOD 09/07/2024 12:39 PM [facility] BUN 19 5 - 25 mg/dL LAB CHEMISTRY METHOD 09/07/2024 12:39 PM [facility] Creatinine 1.10 0.70 - 1.30 mg/dL LAB CHEMISTRY METHOD 09/07/2024 12:39 PM [facility] eGFR 70 >=60 mL/min/1. 73m2 LAB CHEMISTRY METHOD 09/07/2024 12:39 PM EDT [facility] Comment:Calculation based on the Chronic Kidney Disease Epidemiology Collaboration (CKD-EPI) equation refit without adjustment for race. BUN/Creatinine Ratio 17.3 LAB CHEMISTRY METHOD 09/07/2024 12:39 PM EDT [facility] Calcium 9.6 8.5 - 10.5 mg/dL LAB CHEMISTRY METHOD 09/07/2024 12:39 PM EDT [facility] Blood Venous blood specimen / Unknown Venipuncture / Unknown 09/07/2024 9:40 AM EDT 09/07/2024 9:40 AM EDT Morteza Chu MD LAB BLOOD ORDERABLES Final Res ult [facility] [address] [place] [address], * Depression Screening (07/12/2023) Depression Screening abstracted Historical Provider HEALTH MAINTENANCE Final Result * Colonoscopy (04/03/2022) Colonoscopy no interpretation , abstracted Anatomical Region Laterality Modality Other Historical Provider HEALTH MAINTENANCE Final Result from Last 3 Months or Most Recently Relevant to Health Maintenance Insurance MEDICARE BLUE CROSS - [place] Care Teams Major Case Detective Relationship Specialty Start Date End Date Morteza Chu MD [address] [place] [id number] PCP - General Internal Medicine 01/26/24
--- OUTSIDE RECORDS SUMMARY | 2024-12-08 11:09 | XMS_ITS | Encounter Summary ---
Author Organization [facility] Address [address] [place] [address] [place] [phone] Phone Care Team Providers Care Journeyman Glazier Name Role Phone Unknown, Unknown Primary Care Provider Lorena Daly MD Primary Care Provider Unavailabl Dnaiel Candelaria MD Primary Care Provider Morteza Chu MD Primary Care Provider + Self-Referred, Patient Unavailable Unavailab Josee Sherman MD Unavailable Santo Fernandez MD Unavailable [phone] Art Alvarado [facility] Unavailable [phone] Encounter Details Date Type Department Care Team (Late st Contact Info) Description 11/01/2017 Procedure Pass [facility], [place] [address] [facility] [place] [address] Social History Tobacco Use Types Packs/Day Years Used Date Smoking Tobacco: Former Smokeless Tobacco: Never Sex and Gender Information Value Date Recorded [...] documented as of this encounter Care Teams Journeyman Glazier Relationship Specialty Start Date End Date Unknown, Unknown, MD PCP - General 10/14/17 12/07/17 Lorena Sal MD PCP - General Emergency Medicine 12/08/17 03/10/21 Daniel Cobos MD [address] [facility] [address] [place] [address] PCP - General Internal Medicine 03/11/21 03/27/24 Morteza Chu MD [address] [place] [id number] PCP - General Internal Medicine 03/28/24 Self-Referred, Patient 03/28/24 Josee Wall MD [address] [place] [phone] [email or web address] 03/29/24 Santo Fernandez MD [address] [place] [phone] [email or web address] 03/29/24 [facility] [address] [place] [phone] [email or web address] Medical Oncology 03/29/24 documented as of this encounter Additional Source Comments The information contained in this document represents components of the legal health record. It is not the complete legal health record.[facility]
--- OUTSIDE RECORDS SUMMARY | 2024-12-08 11:09 | XMS_ITS | Encounter Summary ---
Author Organization [facility] Address [address] [place] [address] Care Team Providers Care Hat Marker Name Role Phone Morteza Chu MD Primary Care Provider [phone] Encounter Details Date Type Department Care Team (Late Contact Info) Description 02/22/2024 Lab Requisition [place] [facility] - Main Lab [address] [facility] [place] [phone] Ward Rosales MD [address] [address] Elevated prostate specific antigen (PSA) [...] Description 01/18/2025 12:30 PM EST Ancillary Procedure [facility] - [address] [facility] [address] [place] [address] documented as of this encounter Procedures Procedure Name Priority Date/Time Associated Diagnosis Comments PROSTATE SPECIFIC ANTIGEN DIAGNOSTIC Routine 02/22/2024 11:10 AM EST Elevated prostate specific antigen (PSA) documented in this encounter Results * (ABNORMAL) Prostate specific antigen diagnostic (02/22/2024 11:10 AM EST) PSA 36.22(H) 0.00 - 4.00 ng/mL LAB CHEMISTRY METHOD 02/22/2024 8:15 PM EST [facility] Blood Venous blood specimen / Unknown 02/22/2024 11:10 AM EST 02/22/2024 6:46 PM EST Narrative [facility] - 02/22/2024 8:15 PM EST The Siemens Advia Smart Energyaur Chemiluminescent Immunoassay is used. Results obtained with different assay methods or kits cannot be used interchangeably. Results cannot be interpreted as absolute evidence of the presence or absence of malignant disease. us Ward Rosales MD LAB BLOOD ORDERABLES Final Resu lt [facility] [address] [place] [address], documented in this encounter Visit Diagnoses Diagnosis Elevated prostate specific antigen (PSA) documented in this encounter Care Teams Hat Marker Relationship Specialty Start Date End Date Morteza Chu MD [address] [place] [id number] PCP - General Internal Medicine 01/26/24 documented as of this encounter
--- OUTSIDE RECORDS SUMMARY | 2024-12-08 11:09 | XMS_ITS | Clinical Summary ---
Author Organization [facility] Address [address] [place] [address] [place] [phone] Phone Care Team Providers Care Fingerprint Expert Name Role Phone Morteza Chu MD Primary Care Provider + Self-Referred, Patient Unavailable Unavailab Josee Sherman MD Unavailable Santo Fernandez MD Unavailable [phone] Art Alvarado [facility] Unavailable [phone] Allergies Active Allergy Reactions Criticality Noted Date Comments Penicillamine Hives 02/18/2021 Penicillins Rash Low 11/01/2017 Medications simvastatin (ZOCOR) 10 MG tablet 1 tablet in the evening Active cholecalciferol , vitamin D3, (VITAMIN D3) 10 mcg (400 unit) capsule Active turmeric-herbal complex no.278 150 mg Cap Active collagen, bovine, 100 % Powd Active multivit with min-folic acid 0.4 mg Tab 1 tablet. Active PARoxetine (PAXIL) 20 MG tablet Take 1 tablet by mouth daily. Active Active Problems Problem Noted Date Diagnosed Date Dystonia 12/17/2017 Cervical dystonia 11/01/2017 Anxiety disorder 11/01/2017 Remote history of stroke 11/01/2017 Immunizations Immunization Administration Dates Next Due Influenza High-Dose Trivalent Preservative Free IM 12/19/2017 Social History Tobacco Use Types Packs/Day Years Used Date Smoking Tobacco: Former Cigarettes Q uit: 1975 Smokeless Tobacco: Never Alcohol Use Standard Drinks/Week Comments No 0 (1 standard drink = 0.6 oz pur e alcohol) quit 42 years ago Child or Family Care Answer Date Record ed Do you have problems with on e of the following making it difficult for you to work, study, or receive health care? No 03/30/2024 Education Answer Date Recorded Are you interested in more education? Not on elsie e 07/09/2022 Are you concerned about learning? Not on file 07/09/2022 No 07/09/2022 No 07/09/2022 Food Answer Date Recorded Within the past 6 months we worried whether our food would run out before we got money to buy more. Never True 03/30/2024 Within the past 6 months the food we bought just didn't last and we didn't have enough money to get more. Never True Residential Stability Answer Date Recor ded What is your housing situation today? I have meli sing 03/30/2024 How many times have you move d in the past 12 months? Zero (I did not move) 03/30/2024 Paying for Meds Answer Date Recorded Do you have trouble paying for medicines? No 03/30/2024 Paying Utility Bills Answer Date Record ed Do you have trouble paying your heating or elect ricity bill? No 03/30/2024 Transportation Answer Date Recorded Has the lack of transportati on kept you from medical appointments or from getting medications? No 03/30/2024 Digital Access Answer Date Recorded No 08/08/2022 No 08/08/2022 Reliable internet access at home? Not on file 08/08/2022 Device with a working camera? Not on file Sex and Gender Information Value Date Recorded Sex Assigned at Male 03/28/2024 12:49 PM EST Legal Sex Male 10:02 PM EDT Gender Identity Male 03/28/2024 12:49 PM EST Sexual Orientation Straight 03/28/2024 12 :49 PM EST Last Filed Vital Signs Vital Sign Reading Time Taken Comments Blood Pressure 115/66 04/07/2024 12:56 PM EST Pulse 66 04/07/2024 12:56 PM EST Temperature 36.1 C (97 F) 04/07/2024 12:56 PM EST Respiratory Rate 16 04/07/2024 12:56 PM EST Oxygen Saturation 99% 04/07/2024 12:56 PM EST Inhaled Oxygen Concentration - - Weight 98 kg (216 lb 0.8 oz) 04/07/2024 12:56 PM EST Height 179.7 cm (5' 10.75 ) 04/06/2024 3:[address] Body Mass Index 30.35 04/06/2024 3:01 PM EST Plan of Treatment Health Maintenance Due Date Last Done Comments DEPRESSION SCREENING 1962 SMOKING Hx and SMOKELESS TOBACCO SCREENING 1963 HEPATITIS C SCREENING 01/04/1968 COLOGUARD 1995 COLONOSCOPY 1995 COLORECTAL CANCER SCREENING 1995 FIT TEST 1995 FOBT 1995 SIGMOIDOSCOPY 1995 VIRTUAL COLONOSCOPY 1995 ABDOMINAL AORTIC ANEURYSM (AAA) SCREENING 2015 INFLUENZA VACCINE (#1) 2024 , 11/18/2022, 01/15/2022, Additional history exists COVID-19 VACCINE ( season) 2024 12/13/2023, 12/19/2022, 08/17/2022, Additional history exists LIPID PANEL 12/13/2028 12/14/2023 Adult Td,Tdap Booster 06/23/2032 06/23/2022, 023 PNEUMOCOCCAL VACCINES (50+ years) Completed 05/21/2021 ZOSTER VACCINES Completed 07/22/2022, 11/0 03/2021, 05/21/2021, Additional history exists RSV VACCINE Completed 12/19/2022 HEPATITIS A VACCINES Aged Out No long er eligible based on patient's age to complete this topic HIB VACCINES Aged Out No longer eligi ble based on patient's age to complete this topic MENINGOCOCCAL VACCINES (ACWY) Aged Out No longer eligible based on patient's age to complete this topic MENINGOCOCCAL VACCINES (B) Aged Out N o longer eligible based on patient's age to complete this topic Medical Devices Implanted Type Area Construction Recruiter Device Identifier Shelf Expiration Date Model / Serial / Lot Plate Straight Ti Matrixneuro 2 Holes/12mm - [id number] Implanted:Qty: 1 on 12/17/2017 by Son [facility]sei MD at [facility]: Cranial SYNTHES 503.062 / / Screw Bone 1.5x4mm Ti Self Drilling Matrixneuro Non Strl Disp Pk/5ea - [id number] Implanted:Qty: 2 on 12/17/2017 by Son Osei MD at [facility] [employer] Left: Cranial SYNTHES 503.104 .05 / / Lead Stimulator 40cm Deep Brain With Stimloc Cap Kit Ea - [id number] Implanted:Qty[facility]: Cranial [employer] 06/15/2020 3387S-40 / / [id number] Lead Stimulator 40cm Deep Brain With Stimloc Cap Kit Ea - [id number] Implanted:Qty: 1 on 12/17/2017 by Son Osei MD at [facility] Right: Cranial [employer] 06/15/2020 3387S-40 / / [id number] Extension Coil Stretch Dbs 60cm - [id number] Implanted:Qty: 1 on 12/23/2017 by Son Osei MD at [facility] Right: Chest [employer] 10/04/2021 [id number] / [id number] / Extension Coil Stretch Dbs 60cm - [id number] Implanted:Qty: 1 on 12/23/2017 by Son Osei MD at [facility] Right: Chest [employer] 10/04/2021 [id number] / [id number] / Titanium Clips Cervical Spine Surgical Cranioplasty Sterile Disp Kit - [id number] Implanted:Qty: 1 on 12/17/2017 by Son Osei MD at [facility] Left: Cranial [employer] 03/14/2020 [id number] / / [id number] Surgical Cranioplasty Sterile Disp Kit - [id number] Implanted:Qty: 1 on 12/17/2017 by Son Osei MD at [facility] Right: Cranial [employer] 03/14/2020 [id number] / / [id number] Activa Rc Us Mkt - [id number] Implanted:Qty: 1 on 12/23/2017 by Son Osei MD at [facility] Right: Chest [employer] 10/09/2018 23368 / [id number] / Insurance MEDICARE PART A & B MEDICARE PART A & B MEDICARE PART A & B MEDICARE PART A & B MEDICARE PART A & B MEDICARE PART A & B MEDICARE PART A & B MEDICARE PART A & B [facility] FEDERAL MEDICARE PART A & B Advance Directives For more information, please contact: [phone] (9AM - 5PM [facility], Wednesday-Wednesday) * Full Code (Presumed) (Latest Code Status on File) Date Activated Date Inactivated Comments 12/17/2017 12:58 PM 12/19/2017 3:57 PM Care Teams Fingerprint Expert Relationship Specialty Start Date End Date Morteza Chu MD [address] [place] [id number] PCP - General Internal Medicine 03/28/24 Self-Referred, Patient 03/28/24 Josee Wall MD [address] [place] [address] [email or web address] Radiation Oncology 03/29/24 Santo Fernandez MD [address] [place] [id number] [email or web address] Urology 03/29/24 Art Alvarado [facility] [address] [place], [place] [id number] [email or web address] Medical Oncology 03/29/24 Additional Source Comments The information contained in this document represents components of the legal health record. It is not the complete legal health record.[facility]
--- OUTSIDE RECORDS SUMMARY | 2024-12-08 11:09 | XMS_ITS | Patient Health Record ---
Author Organization [facility] Address [address] [facility] [place] [address] Care Team Providers Care Manager Drilling Name Role Phone Vlad HOLLINGSWORTH, Morteza Primary Care Provider Unavailab Hilary Ryan Unavailable [phone] Mio Spear Unavailable [phone] Allergies Allergen (clinical drug ingredient) Drug/Non Drug [...] primary osteoarthritis of the ankle and/or foot (697324223) Primary osteoarthrit is, left ankle and foot (M19.072) Active confirmed Problem Localized, primary osteoarthritis of the ankle and/or foot (785751963) Primary osteoarthrit is, right ankle and foot (M19.071) Active confirmed Vital Signs Height 6ft 1in in 12/30/2023 Weight 210 lbs 12/30/2023 BMI 27.7 kg/m2 12/30/2023 Encounters Encounter Location Date Provider Diagnosis [facility] [address] [address] 12/30/2023 Mio Spear Cellulitis of toe of left foot L03.032 ; Primary osteoarthritis, left ankle and foot M19.072 ; Primary osteoarthritis, right ankle and foot M19.071 ; Pain in left ankle and joints of left foot M25.572 and Pain in right ankle and joints of right foot M25.571 Assessments Encounter Date Diagnosis (ICD Code) Assessment Notes Treatment Notes Treatment Clinical Notes Section Notes 12/30/2023 Primary osteoarthritis, left ankle and foot [...] Medicare National Govt [employer] [address] [facility] [place] [address] [id number] Nick Burger Self - patient is the insured [facility] [address] [place] [address] [id number] Nick Burger Self - patient is the insured Medical (General) History Medical History History ICD Code Depression Hypercholesterolemia
--- OUTSIDE RECORDS SUMMARY | 2024-12-08 11:09 | XMS_ITS | Encounter Summary ---
Author Organization [facility] Address [facility] [address] [place] [phone] Phone Care Team Providers Care Floorhand Name Role Phone Lorena Sal MD Primary Care Provider Unavailabl Daniel Candelaria MD Primary Care Provider Morteza Chu MD Primary Care Provider + Self-Referred, Patient Unavailable Unavailab Josee Sherman MD Unavailable Santo Fernandez MD Unavailable [phone] Art Alvarado [facility] Unavailable [phone] Encounter Details Date Type Department Care Team (Late st Contact Info) Description 12/17/[address] [facility] [place] [address] [facility], [address]th [place] [address] Social History Tobacco Use Types Packs/Day Years [...] documented as of this encounter Care Teams Floorhand Relationship Specialty Start Date End Date Lorena Sal MD PCP - General Emergency Medicine 12/08/17 03/10/21 Daniel Cobos MD [address] [facility] [address] [place] [address] PCP - General Internal Medicine 03/11/21 03/27/24 Morteza Chu MD [address] [place] [address] PCP - General Internal Medicine 03/28/24 Self-Referred, Patient 03/28/24 Josee Wall MD [address] [place] [address] [email or web address] Radiation Oncology 03/29/24 Santo Fernandez MD [address] [place] [address] [email or web address] Urology 03/29/24 [facility] [address] [place] [id number] [email or web address] BEDS AT [facility] Medical Oncology 03/29/24 documented as of this encounter Additional Source Comments The information contained in this document represents components of the legal health record. It is not the complete legal health record.[facility]
== END 2024-12-08 10:27 | disposition home or self-care (01) ==
LOC: HO.HOS 09:58
PROVIDERS: Visit Provider Physician Assistant
DX: M17.11 Unilateral primary osteoarthritis, right knee (principal)
CPT/HCPCS: 20610

== ENCOUNTER → 2024-12-08 09:57 | Outpatient (BNVA) | payer MEDICARE, BC, SELFPAY | PROVIDERS: Visit Provider Physician Assistant | DX: M17.11 Unilateral primary osteoarthritis, right knee (principal) | CPT/HCPCS: 20610; J7318 ==

== ENCOUNTER 2025-03-01 13:25 | Outpatient (AMB) | payer MEDICARE, BC, SELFPAY ==
[2025-03-01 13:26] VITALS: BMI 26.4
--- NOTE | 2025-03-01 13:26 | A.OFFVIS_ITS ---
Vital Signs 03/01/25 13:26 Height 6 ft 1 in Weight 200 lb BMI 26.4 Intake Visit Reasons: OV - discuss right TKA Intake Note: Nick is a 75 year old male who presents today for a follow up of his Right Knee to discuss a Right TKA. Patient was last seen in November with Gisselle where he was provided with a Durolane Injection. Allergies Penicillins Allergy (Unknown, Verified 03/01/25 13:27) Unknown HPI Comments Details: Interval History The patient is a 75-year-old male presenting with follow-up for right knee osteoarthritis management. The patient reports persistent knee pain, particularly in the right knee, which occasionally jesus during certain movements. He mentions that he can walk and use the elliptical but experiences sharp pain with twisting motions. He has previously received gel injections and cortisone shots for the knee, which prov ided some relief, but the pain persists. The patient recalls undergoing a knee arthroscopy three years ago, which involved cleaning out the knee, but he continues to experience moderate arthritis and bone spurs. The patient has a history of prostate cancer, which was treated with radiation therapy. He reports that the cancer was aggressive and high-risk, but it remained localized to the prostate and seminal vesicles. He underwent radiation treatment and currently has a PSA level below one, indicating good control of the disease. Results - MRI from 2021 showed significant arthritis in the right knee with multiple bone spurs. PFSH Medical History Cervical dystonia Depression Elevated cholesterol Surgical History Hx of colonoscopy Hx of arthroscopic knee surgery H/O brain surgery Social History Patient Tobacco Use Status: Former Tobacco user Current occupational status: retired Current occupation: rt handed Physical Exam Exam Exam: Physical Exam Right knee with 0-130 degrees motion. No tenderness to palpation. Mild lateral pain with Christo's testing. No effusion. Vital Signs: BMI result Body Mass Index 26.4 Assessment & Plan Assessment & Plan (1) Arthritis of right knee: Code(s): M17.11 - Unilateral primary osteoarthritis, right knee Category: Medical Plan Plan 1. Right Knee Osteoarthritis With Bone Spurs I recommend platelet-rich plasma (PRP) therapy to manage the knee pain and improve function. I recommend that he continue with his current exercise ronald men, including walking and using the elliptical, as tolerated, to maintain joint mobility and overall fitness. Follow-up with pain management is recommended to assess the effectiveness of PRP therapy and adjust the treatment plan as needed. 2. History Of Prostate Cancer, Treated With Radiation Continue monitoring PSA levels to ensure ongoing control of prostate cancer. The patient should report any new symptoms or concerns related to his prostate health. Discussion Notes During the visit, the patient expressed frustration with the ongoing knee pain despite previous treatments, including gel injections and cortisone shots. I explained that the knee arthritis and associated bone spurs are contributing to the pain and buckling symptoms. The option of platelet-rich plasma (PRP) therapy was discussed as a potential treatment to alleviate symptoms and improve knee function. The patient was informed about the procedure, including the use of his own blood to concentrate platelets for injection into the knee. The patient agreed to try PRP therapy, understanding that it may cause discomfort initially but could provide long-term relief. The patient also shared his history of prostate cancer, noting the aggressive nature of the disease and the successful control achieved with radiation therapy. The physician acknowledged the patient's concerns and emphasized the importance of regular PSA monitoring. Coding Level of Care Code Est Pt Level 4 (54441) Diagnoses Arthritis of right knee M17.11
--- OUTSIDE RECORDS SUMMARY | 2025-03-01 17:29 | XMS_ITS ---
Author Organization [address] [facility] Address [address] [place] [address] Phone Care Team Providers Care Photogrammetric Surveyor Name Role Phone Morteza Chu MD Primary Care Provider [phone] Active Problems Problem Noted Date Diagnosed Date Cardiomyopathy 01/31/2025 Overview (01/31/2025): echocardiogram on 01/18/2025 that revealed the left ventricle cavity size is normal. There is mild concentric left ventricular hypertrophy. There is mild segmental LV dysfunction with suggestion of apical lateral hypokinesis. Left ventricular ejection fraction is 45-50%. Right ventricle cavity is mildly enlarged. Systolic function could not be accurately assessed due to poor visualization. Grade 1 diastolic dysfunction with normal left atrial pressure. No hemodynamically significant valve disease. Sinus of Valsalva mildly dilated at 4.2 cm, ascending aorta 3.9 cm. Compared to previous echo LVEF is dropped slightly. Assessment & Plan (01/31/2025 10:44 AM EST): Patient appears euvolemic on exam. Did want to start the patient on Entresto at the appointment today however he is resistant, he has agreed to increase his losartan to 50 mg p.o. daily. Not a great candidate for beta-fox at this time secondary to low resting heart rate. He is not endorsing any anginal complaints at the appointment, however his recent echocardiogram did show a reduction in LVEF. I am going to update a PET/stress test. Also I have increased the patient's atorvastatin from 40 mg to 80 mg p.o. daily, in addition he understands he needs to regularly be on a baby aspirin. Pending on these PET stress test results patient may be amendable to starting Entresto. He has been educated on signs of worsening symptoms and when to reach out to the office or when to report to the ED. Coronary artery disease invo lving [place] coronary artery of [place] heart 01/31/2025 Assessment & Plan (01/31/2025 10:45 AM EST): Nonobstructive on his cath from 11/2022, however did have calcium. He has significant family history of coronary artery disease in his family with his brother having PR at age 50. He is going to increase atorvastatin 80 mg p.o. daily, start regular taking a baby aspirin. Updating a PET/stress test more details can be seen under the cardiomyopathy section. Instructed to call 911 or go to the emergency room should the patient begin to experience chest pain or pressure lasting greater than 10 minutes does not resolve with rest. Prostate cancer 05/10/2024 Primary osteoarthritis, left ankle and foot 04/16 Primary osteoarthritis, right ankle and foot Primary hypertension 02/01/2023 Assessment & Plan (01/31/2025 10:42 AM EST): Slightly elevated at the appointment. Going to be increasing patient's losartan from 25 mg p.o. daily to 50 mg p.o. daily. Educated on the importance of diet lifestyle to help further assist in reducing blood pressure. The patient was encouraged to follow low-salt low-fat diet, make purposeful strides towards weight loss, and engage in routine aerobic exercise as tolerated. Assessment & Plan (03/29/2024 9:24 AM EST): [...] consistently. Erectile dysfunction 11/18/2022 Dilated aortic root 10/05/2022 Overview (12/16/2023): - Echocardiogram at the [...] pressure is ideally controlled. Assessment & Plan (01/31/2025 10:42 AM EST): Please see most recent echocardiogram. Appears stable. Can surveillance with echocardiograms every 2 to 3 years. Assessment & Plan (03/29/2024 9:24 AM EST): [...] regimen. Dystonia 12/17/2017 Anxiety disorder 11/01/2017 Current Treatment and Therapy Plans No current plan information found. Past Treatment and Therapy Plans No past plan information found. Current Radiation Episodes * Radiation Therapy: Prostate, PelvisOverview* First Treatment Date Latest Treatment Date Treatment Site Technique Goal Episode Provider 06/21/2024 07/28/2024 ProstatePelvis Curative Jerardo Mark MD * Linked Problems Treatment Courses* Course 1 06/21/2024 - 07/28/2024 Treatment Sites Treatment Period Fraction Dose Fractions Total Dose PelvisSVProstate 06/21/2024 - 07/28/2024 250 / 250 cGy 28 / 2 8 7,000 / 7,000 cGy
--- OUTSIDE RECORDS SUMMARY | 2025-03-01 17:29 | XMS_ITS | Clinical Summary ---
Author Organization [address] [place] [address] [place] [phone] Phone Care Team Providers Care Dobby Looms Pegger Name Role Phone Morteza Chu MD Primary Care Provider [phone] Allergies Active Allergy Reactions Criticality Noted Date Comments Penicillins Rash 06/11/2022 Medications multivitamin with minerals tablet Take 1 tablet by mouth 1 (one) time each day. Active calcium carbonate (Calcium 600) 1,500 mg (600 mg elemental calcium) tablet Take 1 tablet (1,500 mg total) by mouth. Active ascorbic acid (VITAMIN C) 1,000 mg tablet Take 1 tablet (1,000 mg total) by mouth 1 (one) time each day. Active omega 1-sin-vsv-fish oil (Fish OiL) 1,200 (144-216) mg capsule [...] MORNING 90 tablet 1 09/27/19 25 Active tamsulosin (FLOMAX) 0.4 mg 24 hr capsule TAKE 1 CAPSULE BY MOUTH AT BEDTIME, CAPSULE SHOULD BE TAKEN 30 MINUTES FOLLOWING THE SAME MEAL EACH DAY 30 capsule 11/24/19 Active losartan (Cozaar) 50 mg tablet Take 1 tablet (50 mg total) by mouth 1 (one) time each day. 90 each 1 02/01/20 25 026 Active atorvastatin (LIPITOR) 40 mg tablet Take 2 tablets (80 mg total) by mouth 1 (one) time each day. 02/01/20 Active aspirin 81 mg EC tablet Take 1 tablet (81 mg total) by mouth 1 (one) time each day. 02/01/20 25 026 Active atorvastatin (LIPITOR) 40 mg tablet Take 1 tablet (40 mg total) by mouth 1 (one) time each day. 90 each 2 04/18/19 25 025 Discontinued losartan (COZAAR) 25 mg tablet TAKE 1 TABLET BY MOUTH DAILY 90 tablet 1 10/07/19 25 025 Discontinued Active Problems Problem Noted [...] the ED. Coronary artery disease invo lving diomede coronary artery of diomede heart 01/31/2025 Assessment & Plan (01/31/2025 10:45 AM EST): Nonobstructive on his cath from 11/2022, however did have calcium. He has significant family history of coronary artery disease in his family with his brother having GA at age 50. He is going to [...] Encounters Date Type Department Care Team Description 01/31/2025 9:40 AM EST Office Visit [facility] [address] [place] [address] Edmund Coppola NP Dilated aortic root (CMS/HCC V24) (Primary Dx); Hyperlipidemia, unspecified hyperlipidemia type; Primary hypertension; Coronary artery disease involving diomede coronary artery of diomede heart, unspecified whether angina present; Cardiomyopathy, unspecified type (CMS/HCC V24, CMS/HCC V28) 01/26/2025 Telephone [facility] [address] [place] [address] Edmund Coppola NP 01/25/2025 Telephone [facility] [address] [place] [address] Pina Miller MD 01/18/2025 12:30 PM EST Ancillary Procedure [facility] [address] [place] [address] Dilated aortic root (CMS/HCC V24) 01/08/2025 2:00 PM EDT Clinical Support [facility] [address] [place] [address] 2025 Telephone [facility] [address] [place] [address] Karly Oro MA 12/26/2024 Results Follow-Up [facility] [address] [place] [address] Edmund Coppola NP 12/21/2024 Telephone [facility] [address] [place] [address] Pina Miller MD 12/19/2024 Telephone [facility] Hematology Oncology [address] [place] [address] Keyanna Otto MD from Last 3 Months Immunizations Immunization Administration Dates Next Due Influenza trivalent, 0.5mL [...] stonia Mixed hyperlipidemia DX:Mixed hy perlipidemia Stroke ([facility] V24, [facility] V28) Family History Medical History Relation Name [...] drink = 0.6 oz pur e alcohol) Housing Instability Answer Date Recorde d Are you worried that in the next 2 months you may not have stable housing? No 01/08/2025 Food Access & Nutrition Answer Date Rec orded Do you have access to a vari ety of food including fruits and vegetables? Yes 01/08/2025 Health Literacy Answer Date Recorded How often do you need to hav e someone help you when you read instructions, pamphlets, or other written material from your doctor or pharmacy? Never 01/08/2025 Caregiver: How often do you need to have someone help you when you read instructions, pamphlets, or other written material from your doctor or pharmacy? Not on file 01/08/2025 Financial Risk Answer Date Recorded How hard is it for you to pa y for the very basics like food, housing, medical care, and air conditioning / heating? Not very hard 01/08/2025 Transportation Answer Date Recorded Has the lack of transportati on kept you from meetings, work, or from getting things needed for daily living? No Has the lack of transportati on kept you from medical appointments or from getting medications? No 01/08/2025 Social Isolation Answer Date Recorded How often do you feel lonely or isolated from th ose around you? Never 01/08/2025 Food Risk Answer Date Recorded Within the past 12 months we worried whether our food would run out before we got money to buy more. Never true 01/08/2025 Within the past 12 months th e food we bought just didn't last and we didn't have money to get more. Never true 01/08/2025 Dependent Care Answer Date Recorded Do you need help finding or paying for care for your loved ones. For example, child attendant or elderly care for an older adult? No 01/08/2025 Education Answer Date Recorded Do you think completing more education or training, like finishing a GED, going to college, or learning a trade, would be helpful for you? No 01/08/2025 Employment and Income Answer Date Recor ded During the last four weeks, have you been actively looking for work? No 01/08/2025 Living Situation Answer Date Recorded What is your living situation? Unrecognized valu e 01/08/2025 Sex and Gender Information Value Date Recorded Sex Assigned at Male 05/29/2024 8:37 AM EDT Legal Sex Male 6:03 AM EST Gender Identity Male 05/29/2024 8:37 AM EDT Sexual Orientation Straight 05/30/2024 7: 09 AM EDT Occupation Industry Job Start Date Job End Date Retired Not on file Not on file Not on file Last Filed Vital Signs Vital Sign Reading Time Taken Comments Blood Pressure 150/80 01/31/2025 9:48 AM EST Pulse 58 01/31/2025 9:48 AM EST Temperature 36.1 C (96.9 F) 08/25/2024 1:43 PM EDT Respiratory Rate 18 08/25/2024 1:43 PM EDT Oxygen Saturation 98% 01/31/2025 9:48 AM EST Inhaled Oxygen Concentration - - Weight 99.3 kg (219 lb) 01/31/2025 9:48 AM EST Height 190.5 cm (6' 3 ) 01/31/2025 9:48 AM EST Body Mass Index 27.37 01/31/2025 9:48 AM EST Plan of Treatment Health Maintenance Due Date Last Done Comments Abdominal Aortic Aneurysm (AAA) Screen 02/15/2022 Hepatitis C Screening 02/15/2022 COVID-19 Vaccine (11 - Pfizer risk 2024- season) 2025 11/29/2024, 12/13/2023, 12/19/2022, Additional history exists Hypertension/CHF/CAD Annual BMP Blood Test 09/07/2025 09/07/2024, 12/14/2023, 12/14/2023 Falls Risk Assessment 01/08/2026 01/08/2025 Medicare Annual Wellness Visit 01/08/2026 01/08/2025 Social Influencers of Health Screening 01/08/2026 01/08/2025 Colorectal Cancer Screening: Colonoscopy 04/03/2027 04/03/2022 Cholesterol Screening (Lipid Panel) 12/22/2029 12/22/2024, 09/07/2024, 12/14/2023, Additional history exists DTaP,Tdap,and Td Vaccines (3 - Td or Tdap) 06/23/2032 06/23/2022, 06/23/2022 Pneumococcal Vaccine: 50+ Years Completed 05/21/2021, 12/22/2018 Zoster Vaccines Completed 07/22/2022, 11/0 03/2021, 05/21/2021, Additional history exists RSV Immunization Adult Patients Completed 12/19/2022 Influenza Vaccine Completed 11/29/2024, , 11/18/2022, Additional history exists Depression Screening Completed 01/08/2025, 07/12/19 24 HIB Vaccines Aged Out No longer eligi [...] Procedure Name Priority Date/Time Associated Diagnosis Comments TRANSTHORACIC ECHOCARDIOGRAM (TTE) COMPLETE W/ CONTRAST Routine 01/18/2025 2:34 PM EST Dilated aortic root (CMS/HCC V24) LIPID PANEL WITH REFLEX TO DIRECT LDL Routine 12/22/2024 11:24 AM EDT Hyperlipidemia, unspecified hyperlipidemia type BASIC METABOLIC PANEL Routine 09/07/2024 9:40 AM EDT Pure hypercholesterolemia DEPRESSION SCREENING Routine 07/12/2023 COLONOSCOPY Routine 04/03/2022 from Last 3 Months or Most Recently Relevant to Health Maintenance Results * (ABNORMAL) TRANSTHORACIC ECHOCARDIOGRAM (TTE) COMPLETE W/ CONTRAST (01/18/2025 2:34 PM EST) LV EDV (A2C) 62 mL CV PACS LV EDV (A4C) 103 mL CV PACS LV Diastolic Volume (BP) 82 62 - 150 mL CV PACS LV ESV (A2C) 35 mL CV PACS LV ESV (A4C) 51 mL CV PACS LV Systolic Volume (BP) 43 21 - 61 mL CV PACS IVSD 1.2(A) 0.6 - 1.0 cm CV PACS LVIDD 4.7 4.2 - 5.8 cm CV PACS LVIDS 3.3 2.5 - 4.0 cm CV PACS LVOT Diameter 2.3 cm CV PACS LVOT Mean Tim 0.6 m/s CV PACS LVOT Mean Grad 2 mmHg CV PACS LVOT Peak VTI 20.3 cm CV PACS LVOT Peak Tim 1.1 m/s CV PACS LVOT Peak Gradient 5 mmHg CV PACS LVPWD 1.1(A) 0.6 - 1.0 cm CV PACS MV E' Tissue Velocity Lateral 10 cm/s CV PACS MV E' Tissue Velocity Septal 6 cm/s CV PACS Ejection Fraction (A2C) 43 % CV PACS Ejection Fraction (A4C) 51 % CV PACS Ejection Fraction (BP) 47 % CV PACS LVOT Area 4.2 cm2 CV PACS LVOT Stroke Volume 84 mL CV PACS Left Atrium Minor Macy 6.4 cm CV PACS Left Atrium Major Macy 6.5 cm CV PACS LA Area Sys (A2C) 23 cm2 CV PACS LA Area Sys (A4C) 28 cm2 CV PACS LA Volume (BP) 69 mL CV PACS RA Area 18.7 cm2 CV PACS RA 2D Volume 48 mL CV PACS AV Mean Gradient 2 mmHg CV PACS Ao VTI 19.4 cm CV PACS AV Peak Tim 1.1 m/s CV PACS AV Peak Gradient 5 mmHg CV PACS AV Area Continuity Equation 4.3 cm2 CV PACS AV Area Peak Velocity 4.3 cm2 CV PACS Aortic Arch 2.8 cm CV PACS Ascending Aorta 3.9 cm CV PACS Aortic Sinus Valsalva 4.2 cm CV PACS IVC Proximal 2.1 cm CV PACS MV Deceleration [place] 2.1 m/s2 CV PACS E Wave Deceleration Time 285(A) 119 - 242 ms CV PACS MV PHT 83 ms CV PACS MV Peak A Tim 0.80 m/s CV PACS MV Peak E Tim 0.40 m/s CV PACS MV Mean Gradient 0 mmHg CV PACS MV VTI 20.9 cm CV PACS Mitral Valve Max Velocity 0.8 m/s CV PACS MV Peak Gradient 2 mmHg CV PACS MV Area PHT 3.3 cm2 CV PACS MV Area Continuity Equation 4.0 cm2 CV PACS PV Acceleration Time 92 ms CV PACS PV Acceleration Time 194 ms CV PACS PV Acceleration Time 143 ms CV PACS PV Mean Gradient 1 mmHg CV PACS PV VTI 13.1 cm CV PACS PV Peak Velocity 0.8 m/s CV PACS PV Peak Gradient 3 mmHg CV PACS RV Diastolic Basal Dimension 4.2(A) 2.5 - 4.1 cm CV PACS RV S' 16 cm/s CV PACS TAPSE 28 mm CV PACS LV ESV Index (A4C) 23 mL/m2 CV PACS LV EDV Index (A4C) 46 mL/m2 CV PACS E/E' Ratio Septal 7 CV PACS E/E' Ratio Averaged 5 CV PACS LVOT Stroke Index 0 mL/m2 CV PACS Relative Wall Thickness ratio 0.48(A) 0.24 - 0.42 CV PACS LVOT:AV VTI Index 1.05 CV PACS FS 30 % CV PACS LV Mass 2D 198 96 - 200 g CV PACS Ascending Aorta Index 1.76 cm/m2 CV PACS MV VTI:LVOT VTI ratio 1.0 CV PACS LVOT flow 249 mL/s CV PACS RA 2D Volume Index 22 18 - 32 mL/m2 CV PACS VENANCIO Index (VTI) 1.96 cm2/m2 CV PACS VENANCIO Index (Pk Tim) 1.94 cm2/m2 CV PACS LVIDD Index 2.12 cm/m2 CV PACS LVIDS Index 1.49 cm/m2 CV PACS AV Velocity Ratio 1.03 CV PACS E/A Ratio 0.5(A) 0.8 - 2.0 CV PACS E/E' Ratio Lateral 4 CV PACS LV Systolic Volume Index (BP) 0(A) 11 - 31 mL/m2 CV PACS LV Diastolic Volume Index (BP) 0(A) 34 - 74 mL/m2 CV PACS LA Volume Index (BP) 31 mL/m2 CV PACS LV Mass Index 2D 90 50 - 102 g/m2 CV PACS LV EDV Index (A2C) 28 mL/m2 CV PACS LV ESV Index (A2C) 16 mL/m2 CV PACS BSA 2.24 m2 CV PACS Est. RA Pressure 8 mmHg CV PACS LA Volume (A-L) 51 mL CV PACS LA Volume Index (A-L) 23 mL/m2 CV PACS RV Free Wall Peak S' 16 cm/s CV PACS RA Major Macy 6.1 cm CV PACS RA Major Macy Index 2.7 2.1 - 2.7 cm/m2 CV PACS AV Area 2D 4.3 cm2 CV PACS VENANCIO Index (2D) 1.94 cm2/m2 CV PACS Inferior Vena Cava Diameter At Expiration 2.1 cm CV PACS IVC Expiration Index 0.95 cm/m2 CV PACS LV EF MOD 2C 43 % CV PACS LV EF 4C A-L 51 % CV PACS LV EDV 4C A-L 105 mL CV PACS LV Length Sys (A4C) 6.8 cm CV PACS LV Length Rice (A4C) 8.1 cm CV PACS AV Area Index 1.9 CV PACS Left Ventricular Stroke Volume by 2-D Biplane-MOD 39 mL CV PACS Anatomical Region Laterality Modality Ultrasound Narrative 01/31/2025 9:22 AM EST Left ventricle cavity size is normal. There is mild, concentric left ventricular hypertrophy. There is mild, segmental LV systolic dysfunction with suggestion of apical lateral hypokinesis. Left ventricular ejection fraction is 45 to 50%. Right ventricle cavity is moderately enlarged. Systolic function could not be accurately assessed due to poor visualization. There is grade 1 diastolic dysfunction consistent with normal left atrial pressure. There is no hemodynamically significant valve disease. The Sinus of Valsalva is mildly dilated (4.2 cm). Ascending aorta is likely upper normal to mildly dilated for age and body surface area at 3.9 cm. Compared with prior echocardiogram from 01/26/2024, ejection fraction has dropped slightly. I cannot say whether the regional wall motion is new or old given that the apex was slightly foreshortened on the previous echo. Ascending aortic and aortic root measurements are stable. Left Ventricle Left ventricle cavity size is normal. There is mild concentric hypertrophy. Systolic function is mildly decreased with an ejection fraction of 45-50%. There is suggestion of apical lateral hypokinesis. There is grade I (mild) diastolic dysfunction and normal left atrial pressure. Right Ventricle Right ventricle was not well visualized. Right ventricle cavity is moderately dilated. Cannot assess accurately. Left Atrium Left atrium cavity size is normal. Right Atrium Right atrium was not well visualized. Right atrium cavity is normal. IVC/SVC Inferior vena cava structure is normal. RA pressures is estimated to be 8 mmHg (IVC diameter <21 mm and decreases <50% during inspiration). Mitral Valve The leaflets are mildly thickened. There is mild annular calcification. There is trace regurgitation. There is no evidence of mitral valve stenosis. Tricuspid Valve Tricuspid valve structure is normal. There is trace regurgitation. There is no evidence of tricuspid valve stenosis. Cannot assess RVSP. Aortic Valve The aortic valve is trileaflet. The leaflets are mildly thickened. There is trace regurgitation with a centrally directed jet. There is no evidence of aortic valve stenosis. Pulmonic Valve There is trace pulmonic valve regurgitation. There is no evidence of pulmonic valve stenosis. Ascending Aorta The Sinus of Valsalva is mildly dilated (4.2 cm). The ascending aorta is likely upper normal to mildly dilated for age and body surface area (3.9 cm). Pericardium Pericardium appears normal. There is no pericardial effusion. Study Details Overall the study quality was technically difficult. Definity contrast was given to enhance imaging. Pina Miller MD CV ECHO PROCEDURES Final Result * (ABNORMAL) Lipid panel with reflex to direct LDL (12/22/2024 11:24 AM EDT) Cholesterol 223(H) 0 - 200 mg/dL LAB CHEMISTRY METHOD 12/22/2024 2:44 PM EDT [facility] Triglycerides 205(H) 0 - 150 mg/dL LAB CHEMISTRY METHOD 12/22/2024 2:44 PM EDT [facility] HDL 45 >=40 mg/dL LAB CHEMISTRY METHOD 12/22/2024 2:44 PM EDT [facility] LDL Calculated 137(H) 0 - 100 mg/dL LAB CHEMISTRY METHOD 12/22/2024 2:44 PM EDT [facility] Comment:Estimated LDL Calcul ated using equation: Total cholesterol - HDL cholesterol - (Triglycerides/5) VLDL Cholesterol [place] 41 mg/dL LAB CHEMISTRY METHOD 12/22/2024 2:44 PM T [facility] Non HDL Chol. (LDL+VLDL) 178(H) <145 mg/dL LAB CHEMISTRY METHOD 12/22/2024 2:44 PM EDT [facility] Chol/HDL Ratio 5.0(H) 0.0 - 4.4 LAB CHEMISTRY METHOD 12/22/2024 2:44 PM [facility] Blood Venous blood specimen / Unknown Venipuncture / Unknown 12/22/2024 11:24 AM EDT 12/22/2024 11:24 AM EDT Edmund Coppola NP LAB BLOOD ORDERABLES Final Resul t [facility] [address] [place] [address], [place] [phone] * Basic metabolic panel (09/07/2024 9:40 AM EDT) Sodium 141 133 - 145 mmol/L LAB [...] LAB CHEMISTRY METHOD 09/07/2024 12:39 PM EDT [facility] BUN 19 5 - 25 mg/dL LAB CHEMISTRY METHOD 09/07/2024 12:39 PM EDT [facility] Creatinine 1.10 0.70 - 1.30 mg/dL LAB CHEMISTRY METHOD 09/07/2024 12:39 PM EDT [facility] eGFR 70 >=60 mL/min/1. 73m2 LAB CHEMISTRY METHOD 09/07/2024 12:39 PM EDT [facility] Comment:Calculation based on the Chronic Kidney Disease Epidemiology Collaboration (CKD-EPI) equation refit without adjustment for race. BUN/Creatinine Ratio 17.3 LAB CHEMISTRY METHOD 09/07/2024 12:39 PM EDT [facility] Calcium 9.6 8.5 - 10.5 mg/dL LAB CHEMISTRY METHOD 09/07/2024 12:39 PM EDT [facility] Blood Venous blood specimen / Unknown Venipuncture / Unknown 09/07/2024 9:40 AM EDT 09/07/2024 9:40 AM EDT Morteza Chu MD LAB BLOOD ORDERABLES Final Res ult [facility] [address] [place] [address], * Depression Screening (07/12/2023) Depression Screening abstracted Historical Provider HEALTH MAINTENANCE Final Result * Colonoscopy (04/03/2022) Colonoscopy no interpretation , abstracted Anatomical Region Laterality Modality Other Historical Provider HEALTH MAINTENANCE Final Result from Last 3 Months or Most Recently Relevant to Health Maintenance Insurance MEDIC[facility] Care Teams Dobby Looms Pegger Relationship Specialty Start Date End Date Morteza Chu MD [address] [place] [phone] PCP - General Internal Medicine 01/26/24
--- OUTSIDE RECORDS SUMMARY | 2025-03-01 17:29 | XMS_ITS | Clinical Summary ---
Author Organization [facility] Prior to 08/12/[address] [place] [address] Care Team Providers Care Manager Budget Name Role Phone Unavailable Primary Care Provider [...]
--- OUTSIDE RECORDS SUMMARY | 2025-03-01 17:30 | XMS_ITS | Patient Health Record ---
[facility] Address [address] [place] [address] Care Team Providers Care Job Press Feeder Name Role Phone Vlad HOLLINGSWORTH, Morteza Primary Care Provider Hilary Carrillo Unavailable [phone] Allergies Allergen (clinical drug ingredient) Drug/Non Drug [...] primary osteoarthritis of the ankle and/or foot (532060682) Primary osteoarthrit is, left ankle and foot (M19.072) Active confirmed Problem Localized, primary osteoarthritis of the ankle and/or foot (028716315) Primary osteoarthrit is, right ankle and foot (M19.071) Active confirmed Plan Of Treatment Pending Test Test Name [...] Medicare [employer] [address] [place] [address] [id number] Nick Burger Self - patient is the insured [facility] [address] [place] [address] [id number] Nick Burger Self - patient is the insured Medical (General) History Medical History History ICD Code Depression Hypercholesterolemia
--- OUTSIDE RECORDS SUMMARY | 2025-03-01 17:30 | XMS_ITS | Encounter Summary ---
Author Organization [facility] Address [address] [place] [address] Care Team Providers Care Solar Hot Water Installer Name Role Phone Morteza Chu MD Primary Care Provider [phone] Encounter Details Date Type Department Care Team (Late st Contact Info) Description 01/26/2025 Telephone [facility] [address] [facility] [address] [place] [address] Edmund Coppola NP [address] [place] [address] [place] [address] Social History Tobacco Use Types Packs/Day Years Used Date Smoking Tobacco: Former Cigarettes Smokeless Tobacco: Never Alcohol Use Standard Drinks/Week [...] care for your loved ones. For example, maternal child nurse or elderly care for an older adult? [...] file Not on file Not on file documented as of this encounter Progress Notes * Edmund Coppola NP - 01/26/2025 12:59 PM EST noted * Kelly Salvador MA - 01/26/2025 12:49 PM EST I called and spoke with the patient and he is taking the aspirin and statin. He has a follow up with you next week and wants to be sure that you have the cho results and reviewhis calcium score from 2022 because he wants to discuss that also * Edmund Coppola NP - 01/26/2025 12:04 PM EST Can we make sure that the patient is taking his statin, as well as a baby aspirin. documented in this encounter Plan of Treatment Not on file documented as of this encounter Visit Diagnoses Not on filedocumented in this encounter Additional Health Concerns Assessment Noted Time PHQ-9 Depression Total Score: 0 01/09/20 25 2:34 PM EDT documented as of this encounter Care Teams Solar Hot Water Installer Relationship Specialty Start Date End Date Morteza Chu MD [address] [place] [id number] PCP - General Internal Medicine 01/26/24 documented as of this encounter
--- OUTSIDE RECORDS SUMMARY | 2025-03-01 17:30 | XMS_ITS | Encounter Summary ---
Author Organization [facility] Address [facility] [facility] [address] [place] [address] Phone Care Team Providers Care Media Services Specialist Name Role Phone Lorena Sal MD Primary Care Provider Unavailabl Daniel Candelaria MD Primary Care Provider Morteza Chu MD Primary Care Provider + Self-Referred, Patient Unavailable Unavailab Josee Sherman MD Unavailable Santo Fernandez MD Unavailable [phone] Art Alvarado [facility] Unavailable [phone] Encounter Details Date Type Department Care Team (Late st Contact Info) Description 12/17/2017 Procedure Pass [facility] [address] [place] [phone] Social History Tobacco Use Types Packs/Day Years [...] documented as of this encounter Care Teams Media Services Specialist Relationship Specialty Start Date End Date Lorena Sal MD PCP - General Emergency Medicine 12/08/17 03/10/21 Daniel Cobos MD [address] [facility] [address] [place] [address] PCP - General Internal Medicine 03/11/21 03/27/24 Morteza Chu MD [address] [place] [id number] PCP - General Internal Medicine 03/28/24 Self-Referred, Patient 03/28/24 Josee [place] MD [address] [place] [phone] [email or web address] Radiation Oncology 03/29/24 Santo Fernandez MD [address] [place] [id number] [email or web address] 03/29/24 Art Alvarado [facility] [address] [place] [phone] [email or web address] THE [facility] Medical Oncology 03/29/24 documented as of this encounter Additional Source Comments The information contained in this document represents components of the legal health record. It is not the complete legal health record.[facility]
--- OUTSIDE RECORDS SUMMARY | 2025-03-01 17:30 | XMS_ITS | Encounter Summary ---
Author Organization [facility] Address [facility] [address] [place] [address] Phone Care Team Providers Care Hot Mill Supervisor Name Role Phone Lorena Sal MD Primary Care Provider Unavailabl Daniel Candelaria MD Primary Care Provider Morteza Chu MD Primary Care Provider + Self-Referred, Patient Unavailable Unavailab Josee Sherman MD Unavailable Santo Fernandez MD Unavailable [phone] Art Alvarado [facility] Unavailable [phone] Encounter Details Date Type Department Care Team (Late st Contact Info) Description 12/17/2017 Procedure Pass [facility], [place] [address] [facility], 4th [place] [address] Social History Tobacco Use Types Packs/Day Years [...] documented as of this encounter Care Teams Hot Mill Supervisor Relationship Specialty Start Date End Date Lorena Sal MD PCP - General Emergency Medicine 12/08/17 03/10/21 Daniel Cobos MD [address] [facility] [address] [place] [address] PCP - General Internal Medicine 03/11/21 03/27/24 Morteza Chu MD [address] [place] [address] PCP - General Internal Medicine 03/28/24 Self-Referred, Patient 03/28/24 Josee Wall MD [address] [place] [address] [email or web address] Radiation Oncology 03/29/24 Santo Fernandez MD [address] [place] [phone] [email or web address] Urology 03/29/24 Art Alvarado [facility] [address] [place] [address] [email or web address] Medical Oncology 03/29/24 documented as of this encounter Additional Source Comments The information contained in this document represents components of the legal health record. It is not the complete legal health record.[facility]
--- OUTSIDE RECORDS SUMMARY | 2025-03-01 17:30 | XMS_ITS | Encounter Summary ---
Author Organization [facility] Address [facility] [address] [place] [address] Phone Care Team Providers Care Parasitology Teacher Name Role Phone Lorena Sal MD Primary Care Provider Unavailabl Daniel Candelaria MD Primary Care Provider Morteza Chu MD Primary Care Provider + Self-Referred, Patient Unavailable Unavailab Josee Sherman MD Unavailable Santo Fernandez MD Unavailable [phone] Art Alvarado [facility] Unavailable [phone] Encounter Details Date Type Department Care Team (Late st Contact Info) Description 12/17/2017 Procedure Pass [facility], [place] [address] [facility], 4th [place] [address] Social History Tobacco Use Types Packs/Day Years [...] documented as of this encounter Care Teams Parasitology Teacher Relationship Specialty Start Date End Date Lorena Sal MD PCP - General Emergency Medicine 12/08/17 03/10/21 Daniel Cobos MD [address] [facility] [address] [place] [address] PCP - General Internal Medicine 03/11/21 03/27/24 Morteza Chu MD [address] [place] [address] PCP - General Internal Medicine 03/28/24 Self-Referred, Patient 03/28/24 Josee Wall MD [address] [place] [address] [email or web address] Radiation Oncology 03/29/24 Santo Fernandez MD [address] [place] [address] [email or web address] Urology 03/29/24 Art Alvarado [facility] [address] [place] [address] [email or web address] Medical Oncology 03/29/24 documented as of this encounter Additional Source Comments The information contained in this document represents components of the legal health record. It is not the complete legal health record.[facility]
--- OUTSIDE RECORDS SUMMARY | 2025-03-01 17:30 | XMS_ITS | Encounter Summary ---
Author Organization [facility] Address [address] [place] [address] Care Team Providers Care Business Consult Name Role Phone Morteza Chu MD Primary Care Provider [phone] Encounter Details Date Type Department Care Team (Late st Contact Info) Description 02/22/2024 Lab Requisition [facility] [address] [facility] [place] [phone] Ward Rosales MD [address] [phone] Elevated prostate specific antigen (PSA) Social History [...] on file documented as of this encounter Procedures Procedure Name Priority Date/Time Associated Diagnosis Comments PROSTATE SPECIFIC ANTIGEN DIAGNOSTIC Routine 02/22/2024 11:10 AM EST Elevated prostate specific antigen (PSA) documented in this encounter Results * (ABNORMAL) Prostate specific antigen diagnostic (02/22/2024 11:10 AM EST) PSA 36.22(H) 0.00 - 4.00 ng/mL LAB CHEMISTRY METHOD 02/22/2024 8:[address] [facility] Blood Venous blood specimen / Unknown 02/22/2024 11:10 AM EST 02/22/2024 6:[address] [facility] - 02/22/2024 8:15 PM EST The Siemens Advia Centaur Chemiluminescent Immunoassay is used. Results obtained with different assay methods or kits cannot be used interchangeably. Results cannot be interpreted as absolute evidence of the presence or absence of malignant disease. us Ward Rosales MD LAB BLOOD ORDERABLES Final Resu lt [facility] [address] [place] [address], documented in this encounter Visit Diagnoses Diagnosis Elevated prostate specific antigen (PSA) documented in this encounter Care Teams Business Consult Relationship Specialty Start Date End Date Morteza Chu MD [address] [place] [address] PCP - General Internal Medicine 01/26/24 documented as of this encounter
--- OUTSIDE RECORDS SUMMARY | 2025-03-01 17:30 | XMS_ITS | Encounter Summary ---
Author Organization [facility] Address [address] [place] [address] Care Team Providers Care Buckle Inspector Name Role Phone Morteza Chu MD Primary Care Provider [phone] Reason for Visit * Reason Onset Date Comments Results 01/25/2025 Encounter Details Date Type Department Care Team (Late st Contact Info) Description 01/25/2025 Telephone [facility] [address] [facility] [address] [place] [address] Pina Miller MD [address] [place] [address] [place] [phone] Social History Tobacco Use Types Packs/Day Years [...] care for your loved ones. 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 [...] as of this encounter Progress Notes * Rina Osei RN - 01/25/2025 1:47 PM EST F.y.I Booked appt with JASMYNE 01/31. Patient overdue for f/u. Echo done 01/18. He was made aware results not available yet. He wants to discuss at his upcoming appt echo results as well as calcium score from prior test and next steps * Tad Hernandez - 01/25/2025 1:21 PM EST Patient would like his Echo results that were done on 01/18/[address] Miller. documented in this encounter Plan of Treatment Not on file documented as of this encounter Visit Diagnoses Not on filedocumented in this encounter Additional Health Concerns Assessment Noted Time PHQ-9 Depression Total Score: 0 01/09/20 2:34 PM EDT documented as of this encounter Care Teams Buckle Inspector Relationship Specialty Start Date End Date Morteza Chu MD [address] [place] [address] PCP - General Internal Medicine 01/26/24 documented as of this encounter
--- OUTSIDE RECORDS SUMMARY | 2025-03-01 17:30 | XMS_ITS | Encounter Summary ---
Author Organization [facility] Address [facility] [address] [place] [address] Phone Care Team Providers Care Elevator Constructor Electric Name Role Phone Lorena Sal MD Primary Care Provider Unavailabl Daniel Candelaria MD Primary Care Provider Morteza Chu MD Primary Care Provider + Self-Referred, Patient Unavailable Unavailab Josee Sherman MD Unavailable Santo Fernandez MD Unavailable [phone] Art Alvarado [facility] Unavailable [phone] Encounter Details Date Type Department Care Team (Late st Contact Info) Description 12/23/[address] [facility] PERIOPERATIVE DEPT [address] [place] [phone] Social History Tobacco Use Types Packs/Day Years [...] documented as of this encounter Care Teams Elevator Constructor Electric Relationship Specialty Start Date End Date Lorena Sal MD PCP - General Emergency Medicine 12/08/17 03/10/21 Daniel Cobos MD [address] [facility] [address] [place] [address] PCP - General Internal Medicine 03/11/21 03/27/24 Morteza Chu MD [address] [place] [address] PCP - General Internal Medicine 03/28/24 Self-Referred, Patient 03/28/24 Josee Wall MD [address] [place] [address] [email or web address] Radiation Oncology 03/29/24 Santo Fernandez MD [address] [place] [phone] [email or web address] [email or web address] 03/29/24 Art Alvarado [facility] [address] [place] [address] [email or web address] Medical Oncology 03/29/24 documented as of this encounter Additional Source Comments The information contained in this document represents components of the legal health record. It is not the complete legal health record.[facility]
--- OUTSIDE RECORDS SUMMARY | 2025-03-01 17:30 | XMS_ITS | Encounter Summary ---
Author Organization [facility] Address [address] [place] [address] [place] [address] Phone Care Team Providers Care Cocoa Butter Filter Operator Name Role Phone Unknown, Unknown Primary Care Provider Lorena Daly MD Primary Care Provider Unavailabl Daniel Candelaria MD Primary Care Provider [phone] Morteza Chu MD Primary Care Provider + Self-Referred, Patient Unavailable Unavailab Josee Sherman MD Unavailable Santo Fernandez MD Unavailable [phone] Art Alvarado [facility] Unavailable [phone] Encounter Details Date Type Department Care Team (Late st Contact Info) Description 11/01/2017 Procedure Pass [facility] [place] [address] [facility], 2nd [place] [address] Social History Tobacco Use Types Packs/Day Years [...] documented as of this encounter Care Teams Cocoa Butter Filter Operator Relationship Specialty Start Date End Date Unknown, Unknown, MD PCP - General 10/14/17 12/07/17 Lorena Sal MD PCP - General Emergency Medicine 12/08/17 03/10/21 Daniel Cobos MD [address] [facility] [address] [place] [address] PCP - General Internal Medicine 03/11/21 03/27/24 Morteza Chu MD [address] [place] [address] PCP - General Internal Medicine 03/28/24 Self-Referred, Patient 03/28/24 Josee Wall MD [address] [place] [address] [email or web address] Radiation Oncology 03/29/24 Santo Fernandez MD [address] [place] [address] [email or web address] Urology 03/29/24 [facility] [address] [place] [phone] [email or web address] Medical Oncology 03/29/24 documented as of this encounter Additional Source Comments The information contained in this document represents components of the legal health record. It is not the complete legal health record.[facility]
--- OUTSIDE RECORDS SUMMARY | 2025-03-01 17:30 | XMS_ITS | Clinical Summary ---
Author Organization [facility] Address [address] [place] [address] [place] [address] Phone Care Team Providers Care Rural Health Consultant Name Role Phone Morteza Chu MD Primary Care Provider + Self-Referred, Patient Unavailable Unavailab Josee Sherman MD Unavailable Santo Fernandez MD Unavailable [phone] Art Alvarado [facility] Unavailable [phone] Allergies Active Allergy Reactions Criticality Noted Date [...] FOBT 1995 SIGMOIDOSCOPY 1995 VIRTUAL COLONOSCOPY 1995 INFLUENZA VACCINE (#1) 2024 , 11/18/2022, 01/15/2022, [...] this topic Medical Devices Implanted Type Area Senior C Developer Device Identifier Shelf Expiration Date Model / Serial / Lot Plate Straight Ti Matrixneuro 2 Holes/12mm - [id number] Implanted:Qty: 1 on 12/17/2017 by Son Osei MD at [facility] [employer] Left: Cranial SYNTHES 04.503.062 / / Screw Bone 1.5x4mm Ti Self Drilling Matrixneuro Non Strl Disp Pk/5ea - [id number] Implanted:Qty: 2 on 12/17/2017 by Son Osei MD at [facility] [employer] Left: Cranial SYNTHES .503.104 .05 / / Lead Stimulator 40cm Deep Brain With Stimloc Cap Kit Ea - [id number] Implanted:Qty: 1 [facility]17[facility] Cranial [employer] 06/15/2020 3387S-40 / / [id number] Lead Stimulator 40cm Deep Brain With Stimloc Cap Kit Ea - [id number] Implanted:Qty: 1 on 12/17/2017 by Son Osei MD at [facility] Right: Cranial [employer] 06/15/2020 3387S-40 / / [id number] Extension Coil Stretch Dbs 60cm - [id number] Implanted:Qty: 1 on 12/23/2017 by Son Osei MD at [facility] Right: Chest [employer] 10/04/2021 [id number] / [id number] / Extension Coil Stretch Dbs 60cm - [id number] Implanted:Qty: 1 on 12/23/2017 by Son Osei MD at [facility] Right: Chest [employer] 10/04/2021 [id number] / [id number] / Titanium Clips Cervical Spine Surgical Cranioplasty Sterile Disp Kit - [id number] Implanted:Qty: 1 on 12/17/2017 by Son Osei MD at [facility] Left: Cranial [employer] 03/14/2020 [id number] / / [id number] Surgical Cranioplasty Sterile Disp Kit - [id number] Implanted:Qty: 1 on 12/17/2017 by Son Osei MD at [facility] Right: Cranial [employer] 03/14/2020 [id number] / / [id number] Act[employer] Rc Us Mkt - [id number] Implanted:Qty: 1 on 12/23/2017 by Son Osei MD at [facility] Right: Chest [employer] 10/09/2018 [id number] / [id number] / Insurance MEDICARE PART A & B MEDICARE PART A & B MEDICARE PART A & B MEDICARE PART A & B MEDICARE PART A & B MEDICARE PART A & [place] [address] [place] [address] MEDICARE PART A [place] [address] [place] [address] MEDICARE PART A & B [facility] MEDICARE PART A & B Advance Directives For more information, please contact: [phone] (9AM - 5PM [facility], Wednesday-Wednesday) * Full Code (Presumed) (Latest Code Status on File) Date Activated Date Inactivated Comments 12/17/2017 12:58 PM 12/19/2017 3:57 PM Care Teams Rural Health Consultant Relationship Specialty Start Date End Date Morteza Chu MD [address] [place] [address] PCP - General Internal Medicine 03/28/24 Self-Referred, Patient 03/28/24 Josee Wall MD [address] [place] [address] [email or web address] Radiation Oncology 03/29/24 Snato Fernandez MD [address] [place] [address] [email or web address] Urology 03/29/24 Art Alvarado [facility] [address] [place] [phone] [email or web address] Medical Oncology 03/29/24 Additional Source Comments The information contained in this document represents components of the legal health record. It is not the complete legal health record.[facility]
== END 2025-03-01 15:17 | disposition home or self-care (01) ==
LOC: HO.HOS 13:25
PROVIDERS: Visit Provider Orthopaedic Surgery
DX: M17.11 Unilateral primary osteoarthritis, right knee (principal)
CPT/HCPCS: 99214

== ENCOUNTER → 2025-03-01 13:25 | Outpatient (BNVA) | payer MEDICARE, BC, SELFPAY | PROVIDERS: Visit Provider Orthopaedic Surgery | DX: M17.11 Unilateral primary osteoarthritis, right knee (principal); M77.9 Enthesopathy, unspecified; Z85.46 Personal history of malignant neoplasm of prostate; Z87.891 Personal history of nicotine dependence | CPT/HCPCS: 99212 ==